=== PATIENT | female | born 1940 | race Caucasian/White ===

== ENCOUNTER 2019-01-09 07:34 | Outpatient (CLI) | payer MEDICARE ==
--- NOTE | 2019-01-09 08:47 | MRI ---
LUMBAR SPINE MRI WITHOUT IV CONTRAST: Date: 01/09/19 HISTORY: Lumbar radicular pain. Pain down right leg with low back pain. History of colon cancer. FINDINGS: Conus medullaris region is unremarkable, terminating at the upper L2. Prominent disc degenerative disease with ligament and facet hypertrophic changes, particularly thicke sabina of the posterior longitudinal ligament at the L4, L5, and S1 regions. T12-L1: No significant stenosis. L1-L2: No significant stenosis. L2-L3: Mild central canal and moderate lateral recess stenosis, and bilateral foraminal stenosis. L3-L4: Severe central canal and lateral recess stenosis, and bilateral foraminal stenosis with multi ple annular fissures. L4-L5: Very severe central spinal canal and lateral recess, and bilateral foraminal stenosis. L5-S1: Diffuse disc osteophytosis with mild central canal and lateral recess stenosis, and moderate to severe bilateral foraminal stenosis with multiple annular fissures. No significant abnormal marrow signal. IMPRESSION: Variable severity, up to severe, canal, lateral recess, and foraminal stenosis, most marked at L4-L5 followed by L3-L4. POS: [facility]
== END 2019-01-09 07:35 | disposition home or self-care (01) ==
LOC: TBSIIMAG 07:34
PROVIDERS: ATTEND Orthopaedic Surgery
DX: M54.16 Radiculopathy, lumbar region (principal); M48.061 Spinal stenosis, lumbar region without neurogenic claudication
CPT/HCPCS: 72148

== ENCOUNTER 2019-02-06 14:39 | Outpatient (CLI) | payer MEDICARE ==
[2019-02-06 16:43] LABS: Hemoglobin 12.4 g/dL (12.0-16.0); Mean Corpuscular HGB CONC 33.2 g/dL (32.0-36.0); Mean Corpuscular Hemoglobin 30.1 pg (27.0-31.0); Mean Corpuscular Volume 90.6 fL (78.0-98.0); Mean Platelet Volume 7.1 fL (7.4-10.4); Platelet Count 236 thou/uL (130-400); RBC Distribution Width 13.9 % (11.5-14.5); Red Blood Cell (RBC) Count 4.13 mill/uL (4.20-5.40); White Blood Cell (WBC) Count 4.5 thou/uL (4.8-10.8)
[2019-02-06 17:02] LABS: Anion Gap 15 mmol/L (10-20); BUN (Urea Nitrogen) 39 mg/dL (9.8-20.1); Calc. Creatinine Clearance 0 mL/min (70-130); Calcium 9.6 mg/dL (7.8-10.44); Carbon Dioxide 23 mmol/L (23-31); Chloride 105 mmol/L (98-107); Estimated GFR-MDRD 28; Glucose 166 mg/dL (83-110); Potassium 3.6 mmol/L (3.5-5.1); Sodium 139 mmol/L (136-145)
--- NOTE | 2019-02-10 15:19 | EKG ---
Test Reason : Blood Pressure : / mmHG Vent. Rate : 061 BPM Atrial Rate : 061 BPM P-R Int : 170 ms QRS Dur : 090 ms QT Int : 442 ms P-R-T Axes : 064 012 074 degrees QTc Int : 444 ms Sinus rhythm with occasional Premature ventricular complexes Cannot rule out Anterior infarct , age undetermined Abnormal ECG Confirmed by SHAHAB FLORES ([id number]) on 02/10/2019 3:18:57 PM Referred By: MICHAELLE Confirmed By:SHAHAB FLORES
== END 2019-02-06 14:40 | disposition home or self-care (01) ==
LOC: LABBT 14:39
PROVIDERS: ATTEND Neurological Surgery
DX: Z01.818 Encounter for other preprocedural examination (principal); M48.061 Spinal stenosis, lumbar region without neurogenic claudication
CPT/HCPCS: 80048; 85027; 93005; 93010

== ENCOUNTER 2019-02-10 08:05 | Observation (INO) | payer MEDICARE ==
[2019-02-06 15:30] VITALS: BMI 31.7
[2019-02-10] MEDS ORDERED: Fentanyl 100 MCG/2 ML VIAL ONE ×3 (11:49→14:31)
--- NOTE | 2019-02-10 13:26 | OP ---
DATE OF PROCEDURE: 02/10/2019 WEBBING SUPERVISOR: Risa Lopez PA-C. PROCEDURE PERFORMED: L3 to L5 laminectomy; right L4 foraminotomy and diskectomy. DESCRIPTION OF PROCEDURE: The patient was brought to the operating room and intubated. She was rolled in the prone position on gel-filled chest rolls. An incision was made exposing L3 through L5 and the level was confirmed by x-ray. We performed complete L5, complete L4, and inferior L3 laminectomy, completely decompressing the neural elements. We performed a complete right L4-L5 facetectomy and right L4 foraminotomy completely decompressing the right L4 nerve. We explored beneath this and did not find any meaningful herniated disk material. After complete decompression had been secured, the wound was extensively irrigated and MAC hemostasis was secured. Vancomycin powder was applied and the wound was closed in anatomic layers. Job ID: [id number]
[2019-02-10] MEDS ORDERED: Ondansetron HCl/PF 4 MG/2 ML Vial IVP PRN (13:50)
[2019-02-10] MEDS ORDERED: Promethazine HCl 25 MG/ML VIAL SLOW IVP PRN (13:50)
[2019-02-10] MEDS ORDERED: Promethazine HCl 25 MG/ML VIAL IM PRN (13:50)
[2019-02-10] MEDS ORDERED: diphenhydrAMINE 50 MG/ML VIAL IVP PRN (13:58)
[2019-02-10] MEDS ORDERED: Milk Of Magnesia 30 ML UDCUP PO PRN (13:58)
[2019-02-10] MEDS ORDERED: traMADol HCl 50 MG TAB PO PRN ×2 (13:58)
[2019-02-10] MEDS ORDERED: Ondansetron PF 4 MG/2 ML Vial IM PRN (13:58)
[2019-02-10] MEDS ORDERED: Promethazine 25 MG TAB PO PRN (13:58)
[2019-02-10] MEDS ORDERED: Acetaminophen/Codeine 30-300mg Tablet PO PRN (13:58)
[2019-02-10] MEDS ORDERED: Morphine 4 MG/ML VIAL SLOW IVP PRN (13:58)
[2019-02-10] MEDS ORDERED: diphenhydrAMINE 25 MG CAP PO PRN (13:58)
[2019-02-10] MEDS ORDERED: Prochlorperazine 10 MG/2 ML VIAL IM PRN (13:58)
[2019-02-10] MEDS ORDERED: Mag-Al 1200 mg/1200 mg/30 ML UDCUP PO PRN (13:58)
[2019-02-10] MEDS ORDERED: Promethazine HCl 12.5 MG SUPP PR PRN (13:58)
[2019-02-10] MEDS ORDERED: Melatonin 3 MG TAB PO PRN (14:07)
[2019-02-10] MEDS ORDERED: [UNRECOGNIZED DRUG - OTHER] SC SCH (14:15)
[2019-02-10] MEDS: CEFAZOLIN 2 GM in Premix Bag 1 BAG IVPB SCH ×2 (15:53→21:31)
[2019-02-10] MEDS ORDERED: ePHEDrine 50 MG/ML VIAL ONE (16:09)
[2019-02-10] MEDS ORDERED: Dexamethasone 20 MG/5 ML VIAL ONE (16:09)
[2019-02-10] MEDS ORDERED: Rocuronium Bromide 10 MG/ML (10ML VIAL) ONE (16:09)
[2019-02-10] MEDS ORDERED: PROPOFOL 200 MG/20 ML VIAL ONE (16:09)
[2019-02-10] MEDS ORDERED: Glycopyrrolate 0.2 MG/ML 5 ML SYRINGE ONE (16:09)
[2019-02-10] MEDS ORDERED: Lidocaine 1% PF 5 ML VIAL ONE (16:09)
[2019-02-10] MEDS ORDERED: Ondansetron PF 4 MG/2 ML Vial ONE (16:09)
[2019-02-10] MEDS: Gemfibrozil 600 MG TAB PO SCH (18:06)
[2019-02-10] MEDS: hydrALAZINE 25 MG TAB PO SCH (20:55)
[2019-02-10] MEDS ORDERED: Gabapentin 300 MG CAP PO SCH (21:00)
[2019-02-10] MEDS ORDERED: Escitalopram Oxalate 20 mg Tablet PO SCH (21:00)
[2019-02-11] MEDS: Acetaminophen/Codeine 30-300mg Tablet PO PRN ×2 (00:13→08:43)
[2019-02-11] MEDS: tiZANidine HCl 4 MG TAB PO PRN ×2 (00:15→08:39)
--- NOTE | 2019-02-11 05:55 | CON ---
DATE OF CONSULTATION: 02/10/19 REASON FOR CONSULTATION: Medical management. HISTORY OF PRESENT ILLNESS: Ms. Chen is a pleasant 78-year-old female with past medical history significant for hypertension, hyperlipidemia, rheumatoid arthritis, and persistent low back pain, who presented to the hospital electively today for L3 through L5 laminectomy with Dr. Medina. She tolerated the procedure very well. She is seen postoperatively on the floor, sitting up in bed and eating dinner. She states that she feels very well at this time. She has no pain at this time. She has no nausea or vomiting. No chest pain or shortness of breath. REVIEW OF SYSTEMS: 12-point review of systems is performed and is negative except that stated above. ALLERGIES: STATINS. HOME MEDICATIONS: 1. Amlodipine 2.5 mg one tablet p.o. q.a.m. 2. Aspirin 81 mg daily. 3. Cimzia 400 mg one pen subcu every 30 days. 4. Chlorthalidone 25 mg one tablet p.o. q.a.m. 5. Vitamin D3 supplement 4000 units p.o. daily. 6. Vitamin B12 of 5000 mcg p.o. daily. 7. Lexapro 20 mg p.o. at bedtime. 8. Repatha one pen subcu every two weeks. 9. Gabapentin 600 mg p.o. at bedtime. 10. Gemfibrozil 600 mg p.o. b.i.d. 11. Hydralazine 1 tablet p.o. b.i.d. 12. Leflunomide 10 mg p.o. daily. 13. Levothyroxine 125 mcg p.o. q.a.m. 14. Melatonin 5 mg capsule one capsule p.o. at bedtime. 15. Metoprolol succinate 100 mg p.o. daily. 16. Tavares-3 fatty acids two capsules p.o. b.i.d. 17. Prednisone 5 mg tablet one tablet p.o. q.a.m. PAST MEDICAL HISTORY: Significant for hypertension, hyperlipidemia, peripheral neuropathy, rheumatoid arthritis, and colon cancer. PAST SURGICAL HISTORY: Right total knee replacement in 2017. In 2014, she had a hemicolectomy for colon cancer. SOCIAL HISTORY: No illicit drug use. No smoking. No alcohol use. FAMILY HISTORY: Noncontributory. LABORATORY DATA: From February 06, 2019; white blood cell count 4.5, hemoglobin 12.4, hematocrit 37.4, and platelet count is 236. Potassium 3.6, sodium 139, BUN 39, creatinine 1.76, and calcium was 9.6. ASSESSMENT: 1. Status post L3 through L5 laminectomy, right L4 foraminotomy and diskectomy, performed today with Dr. Medina. 2. Rheumatoid arthritis. 3. History of colon cancer diagnosed in 2014, status post hemicolectomy and chemotherapy. 4. Hypertension. 5. Peripheral neuropathy. 6. Chronic kidney disease, stage 3, creatinine 1.76 which appears near baseline. 7. Hyperlipidemia. PLAN: We will continue the patient's home medications and antihypertensive regimen. We will hold off on her leflunomide and prednisone given recent surgery today. We will avoid all nephrotoxins in light of her chronic kidney disease. Empiric antibiotic coverage as ordered per Dr. Medina's team. Physical Therapy consult is pending. We will follow along. Thank you for the consult. Job ID: [id number] MTDD
[2019-02-11] MEDS ORDERED: Levothyroxine Sodium 125 MCG TAB PO SCH (06:00)
[2019-02-11] MEDS: Gemfibrozil 600 MG TAB PO SCH (06:36)
[2019-02-11] MEDS ORDERED: predniSONE 5 MG TAB PO SCH (08:00)
[2019-02-11] MEDS: hydrALAZINE 25 MG TAB PO SCH (08:39)
[2019-02-11] MEDS ORDERED: Amlodipine 5 MG TAB PO SCH (09:00)
[2019-02-11] MEDS ORDERED: Cyanocobalamin (Vitamin B-12) 1,000 MCG TAB PO SCH ×2 (09:00)
[2019-02-11] MEDS ORDERED: Non-Formulary Item 1 EACH (Cyanocobalamin (Vitamin B-12) [Vitamin B12] 5,000 MCG) PO SCH (09:00)
[2019-02-11] MEDS ORDERED: Chlorthalidone 25 MG TAB PO SCH (09:00)
--- NOTE | 2019-02-11 11:42 | PDOC.PN ---
- Subjective Encounter Start Date: 02/11/19 Encounter Start Time: 09:15 Subjective: is sitting in chair, no pain, sob or chest pain -: is ambulating in room -: at bedside - Objective MAR Reviewed: Yes Vital Signs & Weight: Vital Signs (12 hours) Temp Pulse Resp BP Pulse Ox 02/11/19 08:40 50 L 02/11/19 08:39 50 L 02/11/19 07:46 97.7 F 50 L 16 97/59 L 95 02/11/19 03:49 97.6 F 56 L 18 129/74 92 L 02/11/19 01:02 137/70 02/11/19 00:26 97.8 F 55 L 18 169/71 H 93 L Weight Admit Weight 6.526 oz Weight 185 lb I&O: 02/10/19 02/11/19 02/12/19 06:59 06:59 06:59 Intake Total 2140 Output Total 75 Balance 2065 Phys Exam - Physical Examination HEENT: PERRLA, moist MMs Neck: no JVD, supple Respiratory: no wheezing, no rales Cardiovascular: RRR, no significant murmur Gastrointestinal: soft, non-tender, positive bowel sounds Musculoskeletal: no edema, pulses present drain+ at surgical lumbar site Neurological: non-focal, moves all 4 limbs Psychiatric: normal affect, A&O x 3 Dx/Plan (1) S/P lumbar laminectomy Code(s): Z98.890 - OTHER SPECIFIED POSTPROCEDURAL STATES Status: Acute Comment: L3-5, right L4 foraminotomy + diskectomy 02/10/2019 (2) Dyslipidemia Code(s): E78.5 - HYPERLIPIDEMIA, UNSPECIFIED Status: Chronic (3) H/O malignant neoplasm of colon Code(s): Z85.038 - PERSONAL HISTORY OF MALIGNANT NEOPLASM OF LARGE INTESTINE Status: Chronic Comment: prior hemicolectomy, in remission (4) Hypertension Code(s): I10 - ESSENTIAL (PRIMARY) HYPERTENSION Status: Chronic Qualifiers: Hypertension type: essential hypertension Qualified Code(s): I10 - Essential (primary) hypertension (5) Hypothyroidism Code(s): E03.9 - HYPOTHYROIDISM, UNSPECIFIED Status: Chronic (6) Rheumatoid arthritis Code(s): M06.9 - RHEUMATOID ARTHRITIS, UNSPECIFIED Status: Chronic Comment: on cimzia, leflunomide, off prednisone x 2 weeks - Plan hemo/neurostable -: dc plan per nsx adv, is amb in room -: continue home dose of lopressor, hydralazine, lopid, lexapro, synthroid -: will f/u -: renal function is stable * . Review of Systems - Medications/Allergies Allergies/Adverse Reactions: Allergies Allergy/AdvReac Type Severity Reaction Status Date / Time [id number]-Jsb Reductase Allergy Verified 02/06/19 15:30 Inhibitor Medications: Current Medications Acetaminophen/Codeine Phosphate (Tylenol #3) 1 tab PO Q3H PRN PRN Reason: PAIN (1-3) Acetaminophen/Codeine Phosphate (Tylenol #3) 2 tab PO Q3H PRN PRN Reason: PAIN (4-6) Last Admin: 02/11/19 08:43 Dose: 2 tab Al Hydroxide/Mg Hydroxide (Maalox) 30 ml PO Q4H PRN PRN Reason: Heartburn or Indigestion Amlodipine Besylate (Norvasc) 2.5 mg PO DAILY [facility] Last Admin: 02/11/19 08:40 Dose: 2.5 mg Chlorthalidone (Hygroton) [facility] [place] Last Admin: 02/11/19 08:44 Dose: 25 mg Cholecalciferol (Vitamin D3) 4,000 units PO DAILY [facility] Last Admin: 02/11/19 08:39 Dose: 4,000 units Cyanocobalamin (Vitamin B-12) 5,000 mcg PO DAILY [facility] Last Admin: 02/11/19 08:38 Dose: 5,000 mcg Cyanocobalamin (Vitamin B-12) 5,000 mcg PO DAILY [facility] Last Admin: 02/11/19 08:44 Dose: Not Given Diphenhydramine HCl (Benadryl) 25 mg PO Q6H PRN PRN Reason: Itching Diphenhydramine HCl (Benadryl) 25 mg IVP Q6H PRN PRN Reason: Itching Escitalopram Oxalate (Lexapro) 20 mg PO HS [facility] Last Admin: 02/10/19 20:55 Dose: 20 mg Gabapentin (Neurontin) 600 mg PO HS [facility] Last Admin: 02/10/19 20:55 Dose: 600 mg Gemfibrozil (Lopid) 600 mg PO BID-AC [facility] Last Admin: 02/11/19 06:36 Dose: 600 mg Hydralazine HCl (Apresoline) 100 mg PO BID [facility] Last Admin: 02/11/19 08:39 Dose: 100 mg Levothyroxine Sodium (Synthroid) 125 mcg PO 0600 [facility] Last Admin: 02/11/19 05:52 Dose: 125 mcg Magnesium Hydroxide (Milk Of Magnesium) 30 ml PO Q12H PRN PRN Reason: Constipation Melatonin (Melatonin) 5 mg PO HS PRN PRN Reason: Insomnia Morphine Sulfate (Morphine) 2 mg SLOW IVP Q1H PRN PRN Reason: Moderate Breakthrough Pain Morphine Sulfate (Morphine) 4 mg SLOW IVP Q1H PRN PRN Reason: SEVERE BREAKTHROUGH PAIN Last Admin: 02/10/19 18:06 Dose: 4 mg Ondansetron HCl (Zofran) 4 mg IM Q24H PRN PRN Reason: Nausea/Vomiting Patient's Home Medication Repatha Sureclick 1 each SC ASDIR [facility] Prochlorperazine Edisylate (Compazine) 10 mg IM Q6H PRN PRN Reason: Nausea Promethazine HCl (Phenergan) 12.5 mg PO Q4H PRN PRN Reason: Nausea/Vomiting Promethazine HCl (Phenergan Suppository) 12.5 mg MS Q4H PRN PRN Reason: Nausea/Vomiting Sodium Chloride (Flush - Normal Saline) 10 ml IVF PRN PRN PRN Reason: Saline Flush Tizanidine HCl (Zanaflex) 4 mg PO Q6H PRN PRN Reason: MUSCLE SPASM Last Admin: 02/11/19 08:39 Dose: 4 mg Tramadol HCl (Ultram) 50 mg PO Q6H PRN PRN Reason: PAIN (1-3) Tramadol HCl (Ultram) 100 mg PO Q6H PRN PRN Reason: PAIN (4-6)
[2019-02-11 11:47] VITALS: BP 98/66; TEMP 98
--- NOTE | 2019-02-11 15:18 | DIS ---
DATE OF ADMISSION: 02/10/2019 DATE OF DISCHARGE: 02/11/2019 The patient is a 78-year-old female, status post L3 to L5 laminectomy and L4-L5 diskectomy for lumbar stenosis. Following the surgery, she was transitioned to the Med/Surg floor, where her pain has been well-controlled with p.o. medications. She is tolerating a regular diet, and she is voiding appropriately. She has been up and down, ambulating without difficulty, back and forth to the bathroom. She has had no incisional issues. On exam this morning, she is awake and alert, in no acute distress. She has free active range of motion in all extremities. No focal motor weakness. No reflex asymmetry. She has a small amount of shadowing on the dressing, but this is noted immediately postop in progress. The patient appears to be doing well postoperatively. Her ANTIONE drain will be removed this morning, only 75 mL out overnight and we will plan to dismiss the patient to home. I have discussed home care and precautions. We will follow up with the patient in 2 weeks. Job ID: [id number]
[2019-02-11] MEDS ORDERED: Escitalopram Oxalate 20 mg Tablet PO SCH (21:00)
== END 2019-02-11 13:17 | disposition home or self-care (01) ==
LOC: SDC 08:05 → SURG B 15:07
PROVIDERS: ADMIT Neurological Surgery; ATTEND Neurological Surgery
PROC: 01NB0ZZ Release Lumbar Nerve, Open Approach (ICD-10-PCS; principal; 2019-02-10)
DX: M48.062 Spinal stenosis, lumbar region with neurogenic claudication (principal); I48.91 Unspecified atrial fibrillation; E03.9 Hypothyroidism, unspecified; M06.9 Rheumatoid arthritis, unspecified; G62.9 Polyneuropathy, unspecified; I12.9 Hypertensive chronic kidney disease with stage 1 through stage 4 chronic kidney disease, or unspecified chronic kidney disease; N18.3 Chronic kidney disease, stage 3 (moderate); E78.2 Mixed hyperlipidemia; Z85.038 Personal history of other malignant neoplasm of large intestine; Z79.52 Long term (current) use of systemic steroids; Z79.82 Long term (current) use of aspirin; Z79.899 Other long term (current) drug therapy; Z88.8 Allergy status to other drugs, medicaments and biological substances; Z90.49 Acquired absence of other specified parts of digestive tract; Z96.651 Presence of right artificial knee joint; Z98.890 Other specified postprocedural states
CPT/HCPCS: 63047; 63048; 76000; 96365; 96375; 97139; 97530; G0378; J0690; J1100; J2001; J2270; J2405; J2704; J3010; J3370; J3490; J7512

== ENCOUNTER 2019-06-24 14:51 | Outpatient (CLI) | payer MEDICARE ==
[~2019-06-24 14:51] MED LIST: Magnevist 469MG/ML 20 ML VIAL ONE
--- NOTE | 2019-06-24 19:34 | MRI ---
MRI LUMBAR SPINE WITH AND WITHOUT IV CONTRAST: 06/24/19 HISTORY: Patient with history of prior low back surgery in January 2019. Patient is still having back pain and ne uropathy in bilateral feet. Patient is currently on chemotherapy secondary to colon cancer. COMPARISON: MRI lumbar spine on 01/09/2019. FINDINGS: The retroperitoneal structures demonstrate a normal MRI appearance. The conus medullaris is similar in appearance and again terminates at the L1-2 level. There is generalized heterogeneity of the bone marrow likely due to conversion to red marrow. Multile yin degenerative changes are seen in the lumbar spine. There has been interval postsurgical changes r elated to laminectomy defects at the L3-4 and L4-5 levels. There is enhancement seen posterior to the thecal sac at level of laminectomy changes likely related to scarring. There is mass effect on the t hecal sac posteriorly at the L4-5 level due to prominent scarring posteriorly. There is no fluid pema ection seen to suggest an abscess. No epidural collection is identified. L1-2 level: There is no significant central canal or neural foraminal narrowing. L2-3 level: Again noted is a mild broad based disc osteophyte complex and facet hypertrophic changes. Mild generalized narrowing of the central spinal canal is again seen with mild bilateral neural for aminal narrowing. L3-4 level: There is loss of intervertebral disc height. There is a broad based disc osteophyte compl ex again present at this level. This does result in mild to moderate narrowing of the central spinal canal at the level of the disc space, but this has improved when compared to the prior exam. There is prominence of epidural fat on the prior exam which is not appreciated on today's study. There is mil d bilateral neural foraminal narrowing again present greater on the right. There is loss of intervert ebral disc height at this level. Facet degenerative changes are noted. L4-5 level: There are prominent end plate degenerative changes similar to the prior exam with loss o f intervertebral disc height. Broad based disc osteophyte complex is again seen. There is moderate na rrowing of the central spinal canal at this level, but the degree of central canal narrowing has impr karuna when compared to the prior study where there was no severe narrowing of the central spinal canal . Severe bilateral neural foraminal narrowing is again noted. Degree of narrowing is greater on the r ight. L5-S1 level: Again, there is loss of intervertebral disc height with end plate degenerative changes. There is a broad based disc osteophyte complex present. This encroaches on the exiting bilateral S1 n erve roots. There is mild generalized narrowing of the central spinal canal. Prominent facet hypertro phic changes are noted. There is persistent moderate to severe bilateral neural foraminal narrowing g reater on the left. IMPRESSION: 1. Interval postsurgical changes of the lumbar spine with laminectomy defects involving the L4 a nd L5 vertebral bodies. There is enhancing soft tissue seen posterior to the level of laminectomy def ects, most suggestive of postsurgical scarring. There is no evidence of a fluid collection seen to amanda ggest an abscess. No epidural collection is identified. The enhancing soft tissue/scar tissue does re sult in mild mass effect on the posterior aspect of the thecal sac at the level of the L5 vertebral b carlos. 2. Prominent disc degenerative changes again present in the lower lumbar spine. Degrees of centr al canal narrowing have improved secondary to recent laminectomy defects, but there is moderate narro wing of the central spinal canal at the L4-5 level, persistent mild to moderate central canal narrowi ng at the L3-4 level, and moderate narrowing of the central spinal canal at the L4-5 level. 3. Persistent severe bilateral neural foraminal narrowing at the L4-5 level with moderate to sev ere bilateral neural foraminal narrowing at L5-S1 level greater on the left. POS: [facility]K
== END 2019-06-24 14:52 | disposition home or self-care (01) ==
LOC: BICMRI 14:51
PROVIDERS: ATTEND Neurological Surgery
DX: M51.16 Intervertebral disc disorders with radiculopathy, lumbar region (principal); M48.061 Spinal stenosis, lumbar region without neurogenic claudication; M48.07 Spinal stenosis, lumbosacral region; Z98.890 Other specified postprocedural states
CPT/HCPCS: 72158; 82565; A9579

== ENCOUNTER 2019-10-08 14:06 | Inpatient (IN) | payer MEDICARE ==
[2019-10-08 14:54] LABS: Hemoglobin 12.8 g/dL (12.0-16.0); Mean Corpuscular HGB CONC 35.2 g/dL (32.0-36.0); Mean Corpuscular Hemoglobin 30.9 pg (27.0-31.0); Mean Corpuscular Volume 87.9 fL (78.0-98.0); Mean Platelet Volume 7.5 fL (7.4-10.4); Platelet Count 217 thou/uL (130-400); RBC Distribution Width 13.2 % (11.5-14.5); Red Blood Cell (RBC) Count 4.15 mill/uL (4.20-5.40); White Blood Cell (WBC) Count 5.3 thou/uL (4.8-10.8)
[2019-10-08 15:07] LABS: Band 6 % (5-11); Eosinophils 6 % (0-10); Lymphocytes 26 % (21-51); MDiff Complete? YES; Monocytes 11 % (0-10); Neutrophil 51 % (42-75); Platelet Morphology Comment Appears Adequate; RBC Morphology Normal
--- NOTE | 2019-10-08 15:17 | RAD ---
PORTABLE CHEST 1 VIEW: Date: 10/08/2019 Time: 1537 hours HISTORY: Syncope, atrial fibrillation. FINDINGS: Comparison made with exam of 01/18/2015. The heart size is normal. The aorta is tortuous. There is continued elevation of the right hemidiaphr agm. Calcified granuloma in the left lung is again seen. No focal areas of consolidation, pneumothora shawnee, or pleural effusions are identified. IMPRESSION: No acute process. POS: [facility]
[2019-10-08 15:26] LABS: ALT (SGPT) 22 U/L (8-55); AST (SGOT) 15 U/L (5-34); Albumin 4.2 g/dL (3.4-4.8); Alkaline Phosphatase 74 U/L (40-110); Anion Gap 14 mmol/L (10-20); BUN (Urea Nitrogen) 29 mg/dL (9.8-20.1); Bilirubin, Total 0.5 mg/dL (0.2-1.2); Calc. Creatinine Clearance 0 mL/min (70-130); Calcium 9.2 mg/dL (7.8-10.44); Carbon Dioxide 26 mmol/L (23-31); Chloride 102 mmol/L (98-107); Estimated GFR-MDRD 36; Globulin 2.3 g/dL (2.4-3.5); Glucose 136 mg/dL (83-110); Potassium 3.6 mmol/L (3.5-5.1); Protein, Total 6.5 g/dL (6.0-8.3); Sodium 138 mmol/L (136-145)
[2019-10-08 15:42] LABS: CKMB 6.5 ng/mL (0-6.6)
[2019-10-08] MEDS ORDERED: Aspirin Chewable 81 MG TAB ONE (17:14)
[2019-10-08] MEDS ORDERED: Midazolam HCl 2 mg/2 ml Vial ONE (17:47)
[2019-10-08 20:13] VITALS: BMI 29.8
[2019-10-08] MEDS ORDERED: Guaifenesin DM 100-10/5 ML UDCUP PO PRN (20:13)
[2019-10-08] MEDS ORDERED: Ondansetron PF 4 MG/2 ML Vial IVP PRN (20:13)
[2019-10-08] MEDS ORDERED: Acetaminophen 650 MG Suppository PR PRN (20:13)
[2019-10-08] MEDS ORDERED: Senokot S 8.6-50 MG TAB PO PRN (20:13)
[2019-10-08] MEDS ORDERED: Ondansetron ODT 4 MG TAB PO PRN (20:13)
[2019-10-08] MEDS: Escitalopram Oxalate 20 mg Tablet PO SCH (21:23)
[2019-10-08] MEDS: Gabapentin 300 MG CAP PO SCH (21:23)
[2019-10-08] MEDS: hydrALAZINE 25 MG TAB PO SCH (21:23)
--- NOTE | 2019-10-08 21:35 | HP ---
PRIMARY CARE PHYSICIAN: Yogi Rose DO CHIEF COMPLAINT: Fluttering and zoning out spells. HISTORY OF PRESENT ILLNESS: This is a 78-year-old white female with a history of previous atrial flutter, followed by Dr. Tobias. She was in her normal state of health until the 24 of September when she had an episode of fluttering in her chest and felt like she had zoned out a little bit. This started occurring again about 3 days ago. She has had several episodes at home. She also had a fall in the bathroom on Sunday night that she thought was because she tripped on the rug, but now she is starting to think that maybe she had one of these episodes during and that made her fall. She did skin her elbow at that time, but no other injuries. These were getting more frequent, so she went into the emergency room. In the ER, she was found to be in atrial flutter with some pauses lasting up to 5 seconds. She could feel these occasionally in her chest, but was otherwise asymptomatic from them. The ER doctor did call Dr. Tobias and then contacted Dr. Lange, supervisor coating. He stated that as long as the patient's vital signs were stable and the pauses were not longer than 10 seconds, then no transcutaneous pacing or external pacing was necessary at this time. He did recommend that they admit her to the IMCU, watch her overnight and that he will put a pacemaker in in the morning. REVIEW OF SYSTEMS: CONSTITUTIONAL: No fevers. No chills. EYES: No double vision or blurred vision. ENT: No congestion, drainage, or sore throat. CARDIOVASCULAR: See HPI. No chest pain. PULMONARY: No coughing, wheezing, or shortness of breath. GASTROINTESTINAL: No abdominal pain. No nausea or vomiting. No diarrhea or constipation. GENITOURINARY: No dysuria or hematuria. MUSCULOSKELETAL: She has some chronic rheumatoid arthritis and joint aches, however, this is at baseline. SKIN: No rashes or other lesions that she has noted NEUROLOGIC: She has chronic tingling in her bilateral hands and bilateral feet from peripheral neuropathy from one of her chemotherapy agents years ago. PAST MEDICAL HISTORY: 1. Atrial fibrillation/atrial flutter. 2. Rheumatoid arthritis. 3. Hypertension. 4. Hyperlipidemia. 5. Mild coronary artery disease without any significant blockages. 6. Urinary incontinence. 7. Hypothyroidism. 8. Previous colon cancer stage III, status post surgery, radiation, and chemotherapy. 9. Chronic renal disease, stage III. PAST SURGICAL HISTORY: 1. Appendectomy. 2. Hysterectomy. 3. Right total knee replacement. 4. Foot surgery. 5. Right-sided colectomy. 6. Cardiac catheterization in 2008. 7. Lumbar laminectomy. SOCIAL HISTORY: The patient denies tobacco, alcohol, or illicit drug use. She is , lives with her ; he is present in the room with her. The patient is a full code. Should she be incapacitated, her will be her medical decision maker; his name is Christoph Chen. Her daughter would also help with decision making; her name is Anabela and phone number is [phone]. FAMILY HISTORY: Father had peripheral vascular disease and amputation of one of his extremities. He also had heart trouble. Mom had Alzheimer's, heart disease, and macular degeneration. ALLERGIES: STATINS CAUSE SEVERE LEG CRAMPS. CURRENT MEDICATIONS: 1. Hydralazine 100 mg twice a day. 2. Gabapentin 600 mg at night. 3. Metoprolol extended release 100 mg daily. 4. Leflunomide 10 mg IV infusion once a day. 5. Levothyroxine 125 mcg daily. 6. Amlodipine 2.5 mg daily. 7. Lexapro 20 mg daily. 8. Aspirin 81 mg daily. 9. Repatha SureClick, dose unknown. PHYSICAL EXAMINATION: VITAL SIGNS: Blood pressure 137/98, pulse 89, respirations 18, temperature 97.5, and O2 saturation 95% on room air. GENERAL: This is a well-developed, well-nourished white female, in no acute distress. HEENT: Pupils are equal, round, and reactive to light. Oropharynx clear without lesions, erythema, or exudate. NECK: Supple. No lymphadenopathy. No thyroid nodules or enlargement. HEART: Irregularly irregular rhythm without murmurs, rubs, or gallops. LUNGS: Clear to auscultation bilaterally. No wheezes, crackles, or rhonchi. Normal respiratory effort. ABDOMEN: Soft, nontender to palpation. Normoactive bowel sounds. No hepatosplenomegaly or other masses. EXTREMITIES: No clubbing, cyanosis, or edema. SKIN: No rashes or other lesions noted. NEUROLOGIC: The patient has intact strength and sensation in all extremities. No facial droop. PSYCHIATRIC: Alert and oriented x3. Normal mood and affect. LABORATORY DATA: CBC within normal limits. Complete metabolic panel is notable for a BUN of 29, a creatinine of 1.4 which is actually chronic for her, and glucose of 136. The rest of the complete metabolic panel is normal. Magnesium is 2.0. Troponin is 0.030 and CK-MB was normal. Chest x-ray; I did review the chest x-ray along with the radiologist's report. It shows normal heart size. There was a tortuous aorta. There was some continued elevation in the right hemidiaphragm. No acute processes noted. No infiltrates or pleural effusions. EKG and telemetry monitoring shows atrial flutter waves with irregular block, typically running in the 70s or occasionally dropping down some with intermittent pauses, longest pause appeared in the IVC was 5 seconds. ASSESSMENT: 1. Atrial fibrillation/atrial flutter with variable block and some prolonged pauses. Dr. Lange and Dr. Tobias have been notified by the emergency room and Dr. Lange is planning on putting a pacemaker in in the morning. Pacer pads are present on the patient's chest and the patient is being observed closely in the IMCU. Should she start having pauses greater than 10 seconds, then Cardiology and Electrophysiology will be notified and transcutaneous pacing can be done or if she were to have a drop in her blood pressure and otherwise significantly symptomatic. A sheath was inserted in the right internal jugular vein by the ER physician as well in case they need to do any transvenous pacing. 2. Hypertension. Resume patient's hydralazine, but we will hold AV qing blocking agents for now. 3. Peripheral neuropathy. We will continue the patient's home medications. 4. Hyperlipidemia. 5. Deep venous thrombosis prophylaxis. We will just put SCDs on right now in anticipation of surgery in the morning. 6. Gastrointestinal prophylaxis. Put the patient on Pepcid twice a day. CODE STATUS: Patient is a full code. Should she be incapacitated, her medical decision maker will be her . Job ID: [id number]
[2019-10-08] MEDS ORDERED: Leflunomide 10 mg Tablet PO SCH (22:30)
[2019-10-09] MEDS ORDERED: DOBUTamine 500 mg/250 ml 500 MG in Premix Bag 1 BAG IVPB SCH (01:00)
[2019-10-09 04:15] LABS: Anion Gap 13 mmol/L (10-20); BUN (Urea Nitrogen) 25 mg/dL (9.8-20.1); Calc. Creatinine Clearance 50 mL/min (70-130); Calcium 9.2 mg/dL (7.8-10.44); Carbon Dioxide 24 mmol/L (23-31); Chloride 105 mmol/L (98-107); Estimated GFR-MDRD 43; Glucose 93 mg/dL (83-110); Sodium 139 mmol/L (136-145)
[2019-10-09 04:22] LABS: Band 6 % (5-11); Eosinophils 2 % (0-10); Hemoglobin 12.7 g/dL (12.0-16.0); Lymphocytes 18 % (21-51); MDiff Complete? YES; Mean Corpuscular HGB CONC 34.7 g/dL (32.0-36.0); Mean Corpuscular Hemoglobin 30.3 pg (27.0-31.0); Mean Corpuscular Volume 87.5 fL (78.0-98.0); Mean Platelet Volume 7.5 fL (7.4-10.4); Monocytes 10 % (0-10); Neutrophil 64 % (42-75); Platelet Count 202 thou/uL (130-400); Platelet Morphology Comment Appears Adequate; RBC Distribution Width 13.3 % (11.5-14.5); Red Blood Cell (RBC) Count 4.19 mill/uL (4.20-5.40); White Blood Cell (WBC) Count 5.3 thou/uL (4.8-10.8)
[2019-10-09] MEDS: Levothyroxine Sodium 125 MCG TAB PO SCH (05:33)
[2019-10-09] MEDS ORDERED: Potassium Chloride 20 MEQ TAB PO SCH (08:30)
--- NOTE | 2019-10-09 08:58 | PDOC.HOSPP ---
- Subjective Encounter Date: 10/09/19 Encounter Time: 10:40 Subjective: Patient feeling well this AM. Some palpitation O/N and transferred to ICU due to frequent pauses. Going for pacemaker right now. - Objective Vital Signs & Weight: Vital Signs (12 hours) Temp Pulse Resp BP BP Pulse Ox 10/09/19 08:00 97.7 F 96 10/09/19 03:00 98.2 F 10/09/19 01:46 97.9 F 96 10/08/19 23:09 97.0 F L 10/08/19 21:23 89 112/84 10/08/19 21:00 97.7 F 85 18 112/84 100 Weight Weight 179 lb 6.4 oz Most Recent Monitor Data Heart Rate from ECG 108 NIBP 123/86 NIBP BP-Mean 98 Respiration from ECG 20 SpO2 96 I&O: 10/08/19 10/09/19 10/10/19 06:59 06:59 06:59 Intake Total 28 Output Total 150 Balance -122 Result Diagrams: 10/09/19 03:06 10/09/19 03:06 Hospitalist ROS - Review of Systems Constitutional: denies: fever, chills Respiratory: denies: cough, dry, shortness of breath Cardiovascular: reports: palpitations. denies: chest pain, orthopnea Gastrointestinal: denies: nausea, vomiting, abdominal pain - Medication Medications: Active Medications Generic Name Dose Route Start Last Admin Trade Name Freq PRN Reason Stop Dose Admin Escitalopram Oxalate 20 mg 10/08/19 21:00 10/08/19 21:23 Lexapro PO 20 mg HS DARRIAN Administration Gabapentin 600 mg 10/08/19 21:00 10/08/19 21:23 Neurontin PO 600 mg HS DARRIAN Administration Hydralazine HCl 100 mg 10/08/19 21:00 10/08/19 21:23 Apresoline PO 100 mg BID DARRIAN Administration Dobutamine HCl/Dextrose 500 mg 250 mls @ 12.2 mls/hr 10/09/19 01:00 10/09/19 00:59 / Device IVPB 250 mls INF DARRIAN Administration Protocol 5 MCG/KG/MIN Levothyroxine Sodium 125 mcg 10/09/19 06:00 10/09/19 05:33 Synthroid PO Not Given 0600 DARRIAN - Exam General Appearance: NAD, awake alert ENT: moist mucosa Heart: no murmur, no gallops, no rubs, normal peripheral pulses, irregular Respiratory: CTAB, no wheezes, no rales, no ronchi Gastrointestinal: soft, non-tender, non-distended, normal bowel sounds Psychiatric: normal affect, normal behavior, A&O x 3 Hosp A/P (1) Atrial fibrillation and flutter Code(s): I48.91 - UNSPECIFIED ATRIAL FIBRILLATION; I48.92 - UNSPECIFIED ATRIAL FLUTTER Status: Acute (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 - SICK SINUS SYNDROME Status: Acute (3) Sinus pause Code(s): I45.5 - OTHER SPECIFIED HEART BLOCK Status: Acute (4) CKD (chronic kidney disease) stage 3, GFR 30-59 ml/min Code(s): N18.3 - CHRONIC KIDNEY DISEASE, STAGE 3 (MODERATE) Status: Chronic (5) Dyslipidemia Code(s): E78.5 - HYPERLIPIDEMIA, UNSPECIFIED Status: Chronic (6) Hypertension Code(s): I10 - ESSENTIAL (PRIMARY) HYPERTENSION Status: Chronic Qualifiers: Hypertension type: essential hypertension Qualified Code(s): I10 - Essential (primary) hypertension (7) Hypothyroidism Code(s): E03.9 - HYPOTHYROIDISM, UNSPECIFIED Status: Chronic (8) Rheumatoid arthritis Code(s): M06.9 - RHEUMATOID ARTHRITIS, UNSPECIFIED Status: Chronic - Plan Patient with frequent pauses, alternating with tachycardic flutter overnight. Tachy/preston syndrome. Transferred to ICU. Going for pacemaker now.
[2019-10-09] MEDS ORDERED: FLU VACC TS2019-20(65YR UP)/PF 180 MCG/0.5 ML SYRINGE IM ONE (09:00)
[2019-10-09] MEDS: hydrALAZINE 25 MG TAB PO SCH ×2 (09:00→20:58)
[2019-10-09] MEDS ORDERED: Iopamidol 370 76% 50 ML VIAL FS ONE (09:40)
[2019-10-09] MEDS: Famotidine 20 MG TAB PO SCH (09:46)
--- NOTE | 2019-10-09 10:04 | CON ---
DATE OF CONSULTATION: HISTORY OF PRESENT ILLNESS: Shabana Chen is a 78-year-old white female, admitted with atrial flutter and pauses when she converts. I initially evaluated her in 05/2009. EKG revealed possible inferior and anterior myocardial infarction with nonspecific T-wave changes. Echo revealed ejection fraction of 60% to 65%. Apparently, the EKG changes were new from before. She underwent adenosine Cardiolite testing, which revealed distal lateral wall and apical fixed defect with some evidence of ischemia. She underwent cardiac catheterization and had mild inferior hypokinesis with ejection fraction of 50% to 55%. There was a long 50% mid-LAD lesion, but otherwise unremarkable coronary arteries. She has been treated medically since that time. In 2014, she was found to be anemic and ultimately found to have colon cancer. She underwent Cardiolite testing in 11/2014, which revealed no evidence of ischemia. She underwent laparoscopic right colectomy and ileal distal transverse anastomosis. She did have atrial fibrillation with fast ventricular response and she converted to sinus rhythm on intravenous Cardizem. Her TSH was 0.0215 and free T4 was elevated at 1.63, and it was felt that hyperthyroidism may have been playing a role. She had the atrial fibrillation prior to undergoing colectomy. Her last myocardial perfusion scan was in the office in 12/2016, and she had no evidence of ischemia. Last echo was in 04/2017, she had ejection fraction of 55% to 60% with evidence for diastolic dysfunction, mild mitral and tricuspid regurgitation. She is continued to be followed in the office and has never been documented to have atrial fibrillation since she was hyperthyroid prior to colon surgery. She has had ventricular bigeminy at times on her EKG at times. However, she did have normal LV function on echo and normal Cardiolite. There has been difficulty controlling her hypercholesterolemia with muscle aches with statins and she has been placed on Repatha with last LDL of 39. She did have triglyceride of 466 and Vascepa was recently started. She then noted an episode on 09/24 where she had shaking of her arms and legs for less than a minute, but denied any palpitations. Then, 3 days ago, she fell, and retrospect thinks she may have almost passed out when she fell. She has since had episodes of where she felt as if she was zoning out. These episodes continued. She went to the emergency room. She was found to be in atrial flutter. With converted, she would have pauses of 5 to 6 seconds. She was asymptomatic with the atrial flutter and denied any palpitations at that time, and only symptoms were referable to the pauses. She denies any chest discomfort or shortness of breath. PAST MEDICAL HISTORY: 1. Hypertension. 2. Hypercholesterolemia, intolerant to statins. 3. Coronary artery disease, 50% mid LAD. 4. Atrial fibrillation once when she was hyperthyroid in 2014. 5. GERD. 6. Hypothyroidism. 7. Renal insufficiency. 8. Herniated lumbar disk with leg pain. MEDICATIONS: 1. Amlodipine 2.5 mg daily. 2. Vascepa 2000 mg b.i.d. 3. Levothyroxine 137 mcg daily. 4. Aspirin 81 daily. 5. Repatha 140 mg every 2 weeks. 6. Lexapro 20 mg nightly. 7. Gabapentin 600 mg nightly. 8. Hydralazine 100 mg b.i.d. 9. Leflunomide 10 mg nightly. 10. Melatonin 3 capsules nightly. 11. Metoprolol 100 XL daily. 12. Multivitamin daily. ALLERGIES: MUSCLE ACHES WITH STATINS AND ALSO MUSCLE PAIN WITH ZETIA. PAST SURGICAL HISTORY: 1. Left foot surgery. 2. Hysterectomy. 3. Colectomy for colon cancer. 4. She also has undergone radiofrequency ablation of the left great saphenous and right great saphenous veins. SOCIAL HISTORY: She does not smoke or drink. She worked in a bank in the past. FAMILY HISTORY: Mother had coronary artery disease with stents placed. Father had peripheral vascular disease and leg revascularization. REVIEW OF SYSTEMS: A 10-point review of systems is otherwise unremarkable. PHYSICAL EXAMINATION: VITAL SIGNS: Blood pressure 148/79, pulse of 101 and atrial flutter at the present time. HEENT: PERRL. NECK: Supple. CHEST: Clear. CARDIAC: S1 and S2 are normal without any S3, S4, or murmurs. Carotid upstrokes are normal without bruits. ABDOMEN: Normal bowel sounds without tenderness or organomegaly. EXTREMITIES: No clubbing or cyanosis. There is trace pretibial edema. NEUROLOGIC: Grossly intact. SKIN: Warm and dry. LABORATORY DATA: EKG revealed atrial flutter with variable block, poor R-wave progression, possible inferior infarction. Hemoglobin 12.7, hematocrit 36.7, and white count 5300. Sodium 139, potassium 3.0, chloride 105, carbon dioxide 24, BUN 25, and creatinine 1.22. Troponin-I of 0.030. IMPRESSION: 1. The patient was transferred to the CCU last night and placed on dobutamine due to her pauses of up to 6 seconds. At the present time, that is off and it appears that she is in atrial flutter. Rate is 121 per minute. The atrial flutter is a new rhythm, having not been seen for. 2. History of atrial fibrillation in 2014, which converted with intravenous Cardizem. This occurred prior to colon surgery. It was felt to probably be related to hyperthyroidism at that time. 3. One-vessel coronary artery disease, 50% mid left anterior descending on a catheterization in 2008. 4. Hypertension. 5. Hypercholesterolemia, currently under good control with Repatha. 6. Hypertriglyceridemia, Vascepa started last time seen in the office. 7. Hypothyroidism. 8. Chronic kidney disease. 9. Gastroesophageal reflux disease. 10. Normal left ventricular function on last echo. 11. Venous insufficiency status post ablation of left great saphenous vein and right great saphenous vein. 12. History of colon cancer. PLAN: Electrophysiology has been consulted. Dr. Lange probably will place a pacemaker today. Consideration needs to be given to atrial flutter ablation as well. Echocardiogram will be performed to reassess left ventricular function. Job ID: [id number] MTDD
[2019-10-09] MEDS ORDERED: Vancomycin 1.5 GRAM/300 ML BAG 1.5 GM in Premix Bag 1 BAG IVPB SCH (10:30)
[2019-10-09] MEDS ORDERED: Lidocaine 1% (PF) 30 ML VIAL ONE (10:49)
[2019-10-09] MEDS ORDERED: CEFAZOLIN 1 GM VIAL ONE (10:54)
[2019-10-09] MEDS ORDERED: Gentamicin 80 MG/2 ML VIAL ONE (10:54)
[2019-10-09] MEDS ORDERED: Fentanyl 100 MCG/2 ML VIAL ONE (12:10)
[2019-10-09] MEDS ORDERED: Midazolam HCl 2 mg/2 ml Vial ONE ×2 (12:10→12:24)
[2019-10-09] MEDS ORDERED: HYDROcodone/Acetaminophen 5/325 mg Tablet PO PRN ×2 (14:00)
--- NOTE | 2019-10-09 15:11 | RAD ---
RADIOGRAPH CHEST 1 VIEW: DATE: 10/09/2019 HISTORY: Status post pacemaker insertion in 78-year-old female FINDINGS: The thoracic aorta is tortuous and ectatic. There is no evidence of airspace density, cardiomegaly, p ulmonary edema, or pneumothorax. The lateral costophrenic angles are not effaced. There is a new left subclavian dual lead pacemaker with lead tips projecting over the expected locations of right at rial appendage and right ventricle, since the prior study of 10/08/2019. IMPRESSION: 1) No acute cardiopulmonary findings. 2) ectasia of thoracic aorta. 3) placement of pacemaker without pneumothorax.
[2019-10-09] MEDS ORDERED: Potassium Chloride 40 MEQ in Sodium Chloride 0.9% 250 ML 250 ML IVPB SCH (15:15)
[2019-10-09] MEDS: Amiodarone 450 MG, Admixture Fee 1 EACH in Dextrose 5% in Water 250 ML IVPB SCH ×2 (15:44→22:49)
--- NOTE | 2019-10-09 16:24 | CON ---
DATE OF CONSULTATION: 10/09/2019 REFERRING MUSIC VIDEO DIRECTOR: Jasbir Tobias MD REASON FOR CONSULTATION: Atrial flutter, atrial fibrillation, bradycardia. HISTORY OF PRESENT ILLNESS: Ms. Chen is a pleasant 78-year-old white female with a history of coronary artery disease, with cardiac catheterization by Dr. Tobias in 2016 showing a 50% LAD lesion. No intervention was performed. In addition, she has a history of colon cancer with surgery and chemotherapy. She presented yesterday to the emergency department with palpitations, dizziness, and lightheadedness. Her symptoms were moderate in severity with no exacerbating or alleviating factors. Symptoms occurred for a couple of days prior to admission. She had no chest discomfort or syncope. She was noted to be in typical atrial flutter in the emergency department with pauses up to 5 seconds that were symptomatic. Overnight, she had paroxysmal atrial fibrillation and atrial flutter with sinus rhythm and sinus pauses when she would spontaneously convert to sinus rhythm. Again, her pauses were 5 seconds or more and she was symptomatic. CARDIAC PROCEDURES: On 10/09/2019, echocardiogram: Normal left upper systolic function with no significant valvular disease. In May 2009, catheterization by Dr. Tobias showed a long 50% middle LAD lesion with no other lesions. PAST MEDICAL HISTORY: 1. Coronary artery disease. 2. Hypertension. 3. Mixed hyperlipidemia, intolerant of statins. 4. Paroxysmal atrial fibrillation, which was over replaced on her thyroid replacement medicine in 2014. 5. GERD. 6. Hypothyroidism. 7. Chronic kidney disease. 8. Lumbar disk herniation with leg pain. PAST SURGICAL HISTORY: 1. Left foot surgery. 2. Hysterectomy. 3. Colectomy for colon cancer. 4. Radiofrequency ablation of the left and right great saphenous veins. ALLERGIES: MYALGIAS WITH STATINS AND ZETIA. OUTPATIENT MEDICATIONS: 1. Amlodipine 2.5 mg daily. 2. Vascepa 2000 mg b.i.d. 3. Levothyroxine 137 mcg daily. 4. Aspirin 81 mg daily. 5. Repatha 140 mg every 2 weeks. 6. Lexapro 20 mg q.p.m. 7. Gabapentin 600 mg q.p.m. 8. Hydralazine 100 mg b.i.d. 9. Leflunomide 10 mg q.p.m. 10. Melatonin three capsules q.p.m. 11. Metoprolol XL 100 mg daily. 12. Multivitamin daily. FAMILY HISTORY: Positive for coronary artery disease in her mother. Positive for peripheral vascular disease in her father. SOCIAL HISTORY: . Her is with her today as well as 2 daughters. No tobacco or alcohol. Retired from working in a bank. REVIEW OF SYSTEMS: No orthopnea or edema. No fever or chills. No melena, bright red blood per rectum, or hematemesis. No seizures, syncope, or stroke. PHYSICAL EXAMINATION: GENERAL: Alert and oriented x4, in no apparent distress. VITAL SIGNS: Blood pressure 148/79, pulse 100, and respiratory rate 12. HEENT: No lesions. Sclerae are clear. NECK: No jugular venous distention. CARDIOVASCULAR: Irregularly irregular rhythm. No murmurs, gallops, or rubs. LUNGS: Clear to auscultation bilaterally. Normal respiratory effort. ABDOMEN: Nontender, nondistended. No organomegaly. EXTREMITIES: No cyanosis, clubbing, or edema. SKIN: No lesions. LABORATORY DATA: Reviewed. Potassium 3.0, which has been replaced. IMAGING DATA: EKG atrial flutter with variable block. IMPRESSION: 1. Typical atrial flutter, spontaneously converted to sinus rhythm. 2. Paroxysmal atrial fibrillation. 3. Sick sinus syndrome with symptomatic bradycardia including 5-second pauses. 4. Coronary artery disease. No evidence of ischemia. PLAN: 1. We discussed the risks, benefits, and alternatives of permanent pacemaker implantation including, but not limited to, myocardial infarction, stroke, , vascular damage, pneumothorax, need for chest tube placement, infection, need for device removal, allergic reaction. She is agreeable to proceed. 2. Start intravenous amiodarone overnight after her pacemaker insertion, transitioned to oral amiodarone. 3. Hold off on anticoagulation for now as she will have a recent surgery. Job ID: [id number]
[2019-10-09] MEDS: Gabapentin 300 MG CAP PO SCH (20:56)
[2019-10-09] MEDS: Escitalopram Oxalate 20 mg Tablet PO SCH (20:57)
[2019-10-09] MEDS: Acetaminophen 325 MG TAB PO PRN (20:57)
[2019-10-09] MEDS: Leflunomide 10 mg Tablet PO SCH (21:00)
[2019-10-10] MEDS: Levothyroxine Sodium 125 MCG TAB PO SCH (06:32)
[2019-10-10] MEDS: Amiodarone 450 MG, Admixture Fee 1 EACH in Dextrose 5% in Water 250 ML IVPB SCH (06:33)
--- NOTE | 2019-10-10 07:59 | CON ---
DATE OF CONSULTATION: 10/09/2019 HISTORY OF PRESENT ILLNESS: This is a 78-year-old white female, who presents after a presyncopal episode while the patient fell and skinned her right elbow. The patient reports she has had fluttering over the past couple of months and also reports she had a presyncopal episode in August, which she thinks may have been similar. The patient went to the ER. She is found to be in A-flutter with pauses up to [address] Tobias as well as Dr. Lange were consulted. She was sent here to the ICU on dobutamine for monitoring due to pauses if she were to require transcutaneous pacing. ALLERGIES: STATINS. HOME MEDICATIONS: 1. Escitalopram 20 mg p.o. at bedtime. 2. Certolizumab one pen subcutaneously q.30 days. 3. Repatha one pen subcutaneously as directed. 4. Vitamin D3 4000 units p.o. daily. 5. Melatonin 3 capsules p.o. at bedtime. 6. Vitamin C softgel one cap p.o. b.i.d. 7. Multivitamin daily. 8. Vitamin B12. 9. Baby aspirin daily. 10. Amlodipine 1 tablet p.o. q.a.m. 11. Levothyroxine 125 mcg p.o. q.a.m. 12. Leflunomide 10 mg p.o. at bedtime. 13. Hydralazine 1 tablet p.o. b.i.d. 14. Metoprolol 100 mg p.o. q.a.m. 15. Gabapentin 600 mg p.o. at bedtime. PAST MEDICAL HISTORY: Significant for atrial fibrillation; rheumatoid arthritis ; hypertension; hyperlipidemia; coronary artery disease; urinary incontinence; hypothyroidism; history of colon cancer in 2014, status post surgery, chemotherapy and radiation; CKD. PAST SURGICAL HISTORY: 1. Appendectomy. 2. Hysterectomy. 3. Right total knee replacement. 4. Foot surgery. 5. Right colectomy. 6. Cardiac catheterization. 7. Lumbar surgery. SOCIAL HISTORY: The patient denies any tobacco, alcohol or drug use. REVIEW OF SYSTEMS: GENERAL: The patient denies fevers, chills or headache. EYES: The patient denies vision changes or eye pain. EARS: The patient denies difficulty hearing or ear pain. NOSE/THROAT: The patient denies cough, congestion or rhinorrhea. CARDIAC: The patient reports palpitations. Denies chest pain. LUNGS: The patient denies cough. Denies shortness of breath. ABDOMEN: The patient denies nausea, vomiting, abdominal pain, diarrhea or constipation. : No dysuria, + urinary incontinence EXTREMITIES: The patient denies any swelling or rashes. PSYCH: No depression or anxiety. PHYSICAL EXAMINATION: VITAL SIGNS: Temperature 97.7, heart rate 100, blood pressure 137/79, respiratory rate 21, and O2 saturation 100% on room air. GENERAL: Elderly white female, lying in bed, in no acute distress. HEAD: Normocephalic and atraumatic. CARDIAC: Irregularly irregular rhythm. No murmur, rub or gallop. LUNGS: Bilaterally clear to auscultation. No wheeze or crackles. ABDOMEN: Soft, nontender to palpation. Positive bowel sounds. EXTREMITIES: Cap refill is less than 2 seconds. No edema. SKIN: No rashes or lesions. NEUROLOGIC: The patient is alert and oriented to person, place, and time. Strength 5/5 in upper and lower extremities. Cranial nerves 2 through 12 grossly intact. PSYCHIATRIC: Normal mood and affect. LABORATORY DATA: White blood cells 5.3, hemoglobin 12.7, and platelets 202. Sodium 139, potassium 3.0, chloride 105, carbon dioxide 24, BUN 25, creatinine 1.22, and estimated GFR 43. TSH slightly elevated at 5.1. Troponin is indeterminate at 0.03. IMAGING DATA: Chest x-ray, 10/08/2019; impression, no acute process ASSESSMENT AND PLAN: 1. Atrial fibrillation and flutter with prolonged pauses. The patient had a pacemaker placed with Dr. Lange this AM. TYRX absorbable antibacterial envelope placed during pacemaker insertion. Patient is to remain on an amiodarone drip overnight. The right IJ sheath to be removed. The patient is stable for transfer to the telemetry. Echo pending. 2. Hypertension. Continue home medications. 3. Peripheral neuropathy. Continue home medications. 4. Hyperlipidemia. Continue Repatha. 5. Potassium of 3.0, hypokalemia. I will replace this with 80 mg IV potassium. AM mag pending. 6. Hypothyroidism. TSH slightly elevated. Continue home medications. 7. CKD 3B, GFR at baseline. Case discussed with Dr. Eldridge. Job ID: [id number] [facility]
[2019-10-10] MEDS: hydrALAZINE 25 MG TAB PO SCH ×2 (08:32→20:48)
[2019-10-10] MEDS: Famotidine 20 MG TAB PO SCH (08:33)
--- NOTE | 2019-10-10 09:52 | PRG ---
DATE OF SERVICE: 10/10/2019 SERVICE: Pulmonary Medicine. INTERVAL HISTORY: The patient is doing really well from respiratory standpoint. Breathing comfortably. I woke her up from a very nice sleep throughout this morning. She was cool, calm, and collected. She had no overnight events. Otherwise, she indicates that her appetite is improved. Her strength is better. She is not feeling lightheaded or dizzy. Nursing reports no overnight events. PHYSICAL EXAMINATION: VITAL SIGNS: Afebrile. Pulse 60, blood pressure 149/80, respirations 21, saturation 95%, currently on room air. GENERAL: The patient is awake and alert, in no apparent distress. LUNGS: Decent air entry. No prolonged expiratory phase or wheezing is appreciated. HEART: Normal rate regular. ABDOMEN: Soft, nontender, nondistended, bowel sounds are positive. MUSCULOSKELETAL: No cyanosis or clubbing. There is no pitting in the bilateral lower extremities. IMAGING: Echocardiogram shows a normal ejection fraction. Mild valvular abnormality. ASSESSMENT: 1. Presyncope. 2. Atrial fibrillation with very slow ventricular response, symptomatic. 3. Hypertension. 4. Hypokalemia. DISCUSSION AND PLAN: The patient is stable for transition out of the ICU to the floor. Magnesium was ordered, but the potassium was not. We will see if we can add a basic metabolic profile onto morning laboratories. At this point, the patient is stable for transition out of the ICU to the telemetry unit. When she leaves the ICU, she will have no further requirements for inpatient Pulmonary Critical Care opinion, and I will sign off. Please call with additional questions or concerns through time. Job ID: [id number]
[2019-10-10 09:58] LABS: Anion Gap 13 mmol/L (10-20); BUN (Urea Nitrogen) 26 mg/dL (9.8-20.1); Calc. Creatinine Clearance 39 mL/min (70-130); Calcium 8.6 mg/dL (7.8-10.44); Carbon Dioxide 22 mmol/L (23-31); Chloride 106 mmol/L (98-107); Estimated GFR-MDRD 32; Glucose 88 mg/dL (83-110); Potassium 3.4 mmol/L (3.5-5.1); Sodium 138 mmol/L (136-145)
[2019-10-10] MEDS: Acetaminophen 325 MG TAB PO PRN (13:45)
[2019-10-10] MEDS ORDERED: Amiodarone 200 MG TAB PO SCH (13:45)
--- NOTE | 2019-10-10 15:40 | PRG ---
DATE OF SERVICE: 10/10/2019 SUBJECTIVE: No complaints. Resting comfortably. No chest discomfort, dyspnea, syncope, palpitations, or falls. OBJECTIVE: GENERAL: Alert and oriented x4, well groomed. Mood and affect normal. VITAL SIGNS: Heart rate 60, respiratory rate 12, oxygen saturation 97% on room air, blood pressure 130/61, pulse is 80. HEENT: No lesions. Sclerae clear. SKIN: No lesions. Skin incision site shows no evidence of hematoma or drainage. CARDIOVASCULAR: Regular rate and rhythm. No murmurs, gallops, or rubs. LUNGS: Clear to auscultation bilaterally. EXTREMITIES: No cyanosis, clubbing, or edema. IMPRESSION: 1. Sick sinus syndrome with symptomatic bradycardia. A dual-chamber pacemaker placed without complication. Chest x-ray and device checked today are normal. 2. Typical atrial flutter, has converted to sinus rhythm and maintained sinus rhythm on intravenous amiodarone. 3. Paroxysmal atrial fibrillation, maintaining sinus rhythm on intravenous amiodarone. PLAN: 1. Discontinue intravenous amiodarone. 2. Start amiodarone 200 mg p.o. b.i.d. with food for approximately 1 month. 3. Plan cavotricuspid isthmus ablation and pulmonary vein isolation in about a month. 4. Okay to discharge from my standpoint tomorrow if she maintains sinus rhythm on oral amiodarone. 5. We will see her back in our clinic in 2 weeks. We will arrange followup. Job ID: [id number]
--- NOTE | 2019-10-10 17:30 | PDOC.HOSPP ---
- Subjective Encounter Date: 10/10/19 Encounter Time: 09:00 Subjective: Pt seen for followup re: atrial flutter. Feels better, no complaints today. - Objective Vital Signs & Weight: Vital Signs (12 hours) Temp Pulse Pulse Pulse BP BP BP 10/10/19 09:40 61 60 130/61 151/65 H 10/10/19 08:32 60 149/80 H 10/10/19 08:00 98.1 F Pulse Ox Pulse Ox Pulse Ox 10/10/19 09:40 100 100 10/10/19 08:32 10/10/19 08:00 100 Weight Weight 179 lb 6.4 oz Most Recent Monitor Data Heart Rate from ECG 60 NIBP 159/50 NIBP BP-Mean 86 Respiration from ECG 16 SpO2 98 I&O: 10/09/19 10/10/19 10/11/19 06:59 06:59 06:59 Intake Total 28 1647.2 600 Output Total 150 1225 300 Balance -122 422.2 300 Result Diagrams: 10/09/19 03:06 10/10/19 03:00 Additional Labs: Labs and MARs reviewed by [facility] Hospitalist ROS - Review of Systems Respiratory: denies: cough, shortness of breath, SOB with excertion, pleuritic pain, wheezing Cardiovascular: denies: chest pain, palpitations, orthopnea, paroxysmal noc. dyspnea, edema, light headedness - Medication Medications: Active Medications Generic Name Dose Route Start Last Admin Trade Name Freq PRN Reason Stop Dose Admin Acetaminophen 650 mg 10/08/19 20:13 10/10/19 13:45 Tylenol PO 650 mg Q4H PRN Administration Headache/Fever/Mild Pain (1-3) Escitalopram Oxalate 20 mg 10/08/19 21:00 10/09/19 20:57 Lexapro PO 20 mg HS DARRIAN Administration Famotidine 20 mg 10/09/19 09:00 10/10/19 08:33 Pepcid PO 20 mg DAILY DARRIAN Administration Gabapentin 600 mg 10/08/19 21:00 10/09/19 20:56 Neurontin PO 600 mg HS DARRIAN Administration Hydralazine HCl 100 mg 10/08/19 21:00 10/10/19 08:32 Apresoline PO 100 mg BID DARRIAN Administration Leflunomide 10 mg 10/09/19 21:00 10/09/19 21:00 Arava PO 10 mg HS DARRIAN Administration Levothyroxine Sodium 125 mcg 10/09/19 06:00 10/10/19 06:32 Synthroid PO 125 mcg 0600 DARRIAN Administration - Exam General Appearance: awake alert Eye: anicteric sclera ENT: moist mucosa Neck: supple Heart: RRR Respiratory: CTAB, no rales Gastrointestinal: soft, non-tender Musculoskeletal: normal tone, normal strength Psychiatric: normal affect, normal behavior Hosp A/P - Plan plan discussed w/ family, out of bed/ambulate - Assessment (1) Atrial flutter Code(s): I48.92 - UNSPECIFIED ATRIAL FLUTTER Status: Acute (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 - SICK SINUS SYNDROME Status: Acute (3) Rheumatoid arthritis Code(s): M06.9 - RHEUMATOID ARTHRITIS, UNSPECIFIED Status: Chronic (4) CKD (chronic kidney disease) stage 3, GFR 30-59 ml/min Code(s): N18.3 - CHRONIC KIDNEY DISEASE, STAGE 3 (MODERATE) Status: Chronic (5) Dyslipidemia Code(s): E78.5 - HYPERLIPIDEMIA, UNSPECIFIED Status: Chronic (6) Hypertension Code(s): I10 - ESSENTIAL (PRIMARY) HYPERTENSION Status: Chronic Qualifiers: Hypertension type: essential hypertension Qualified Code(s): I10 - Essential (primary) hypertension (7) Hypothyroidism Code(s): E03.9 - HYPOTHYROIDISM, UNSPECIFIED Status: Chronic (8) Sinus pause Code(s): I45.5 - OTHER SPECIFIED HEART BLOCK Status: Resolved - Plan s/p pacemaker. Switch to oral amiodarone. Likely home tomorrow. HTN controlled.
[2019-10-10] MEDS: Amiodarone 200 MG TAB PO SCH (20:48)
[2019-10-10] MEDS: Escitalopram Oxalate 20 mg Tablet PO SCH (20:49)
[2019-10-10] MEDS: Gabapentin 300 MG CAP PO SCH (20:49)
[2019-10-10] MEDS: Leflunomide 10 mg Tablet PO SCH (20:56)
[2019-10-11] MEDS: Levothyroxine Sodium 125 MCG TAB PO SCH (04:44)
[2019-10-11] MEDS: Famotidine 20 MG TAB PO SCH (08:40)
[2019-10-11] MEDS: hydrALAZINE 25 MG TAB PO SCH (08:40)
[2019-10-11] MEDS: Amiodarone 200 MG TAB PO SCH (08:41)
--- NOTE | 2019-10-11 10:18 | PDOC.CPN ---
- Subjective Date: 10/11/19 Time: 10:16 Interval history: Patient without complaint. overnight had short run aflutter. Asymptomatic. - Review of Systems General: denies: fever/chills, weight/appetite/sleep changes, night sweats, fatigue Respiratory: denies: cough, congestion, shortness of breath, exercise intolerance Cardiovascular: denies: chest pain, palpitation, edema, paroxysmal nocturnal dyspnea, orthopnea Gastrointestinal: denies: nausea, vomiting, diarrhea, constipation, abd pain, GI bleeding Musculoskeletal: denies: pain, tenderness, stiffness, swelling, arthritis/ arthralgias Neurological: denies: numbness, syncope, seizure, weakness - Objective Allergies/Adverse Reactions: Allergies Allergy/AdvReac Type Severity Reaction Status Date / Time Dvnraqn-Nrv-Egb Reductase Allergy Verified 02/06/19 15:30 Inhibitor Visit Medications: Current Medications Acetaminophen (Tylenol) 650 mg PO Q4H PRN PRN Reason: Headache/Fever/Mild Pain (1-3) Last Admin: 10/10/19 13:45 Dose: 650 mg Acetaminophen (Tylenol) 650 mg VT Q4H PRN PRN Reason: Headache/Fever/Mild Pain (1-3) Hydrocodone Bitart/Acetaminophen (Rowley 5/325) 1 tab PO Q4H PRN PRN Reason: Mild Pain Hydrocodone Bitart/Acetaminophen (Rowley 5/325) 2 tab PO Q4H PRN PRN Reason: For Moderate Pain Amiodarone HCl (Cordarone) 200 mg PO BID [facility] Last Admin: 10/11/19 08:41 Dose: 200 mg Escitalopram Oxalate (Lexapro) 20 mg PO [facility] Last Admin: 10/10/19 20:49 Dose: 20 mg Famotidine (Pepcid) 20 mg PO DAILY [facility] Last Admin: 10/11/19 08:40 Dose: 20 mg Gabapentin (Neurontin) 600 mg PO [facility] Last Admin: 10/10/19 20:49 Dose: 600 mg Guaifenesin/Dextromethorphan (Robitussin Dm) 15 ml PO Q4H PRN PRN Reason: Cough Hydralazine HCl (Apresoline) 100 mg PO BID [facility] Last Admin: 10/11/19 08:40 Dose: 100 mg Leflunomide (Arava) 10 mg PO [facility] Last Admin: 03/13/20 20:56 Dose: 10 mg Levothyroxine Sodium (Synthroid) 125 mcg PO 0600 DARRIAN Last Admin: 10/11/19 04:44 Dose: 125 mcg Ondansetron HCl (Zofran Odt) 4 mg PO Q6H PRN PRN Reason: Nausea/Vomiting Ondansetron HCl (Zofran) 4 mg IVP Q6H PRN PRN Reason: Nausea/Vomiting Senna/Docusate Sodium (Senokot S) 2 tab PO BIDPRN PRN PRN Reason: Constipation Sodium Chloride (Flush - Normal Saline) 10 ml IVF PRN PRN PRN Reason: Saline Flush Vital Signs & Weight: Vital Signs Temp Pulse Resp BP BP BP Pulse Ox 10/11/19 08:40 61 121/66 10/11/19 07:11 99.3 F 70 16 129/58 L 92 L 10/11/19 04:00 98.6 F 67 18 124/60 92 L Weight 179 lb 6.4 oz - Physical Exam General: alert & oriented x3, appears well, no apparent distress HEENT: mucus membranes moist Neck: supple neck Cardiac: regular rate and rhythm, other (pacer site without discharge, erythema) Lungs: clear to auscultation, other Neuro: grossly intact Abdomen: unremarkable Extremities: no cyanosis Skin: clear Musculoskeletal: normal range of motion - Labs Result Diagrams: 10/09/19 03:06 10/10/19 03:00 Troponin/CKMB CK-MB (CK-2) 6.5 ng/mL (0-6.6) 10/08/19 14:22 Troponin I 0.030 ng/mL (< 0.028) H 10/08/19 14:22 - Assessment/Plan Assessment/Plan: 1. SSS s/p pacer 2. AFlutter 3. paroxysmal AF Stable. Patient with recurrent atrial arrhythmias and not on ACT. Discussed CHADS2-VASc and risk of CVA, including risks/benefits of ACT. Patient chooses NOAC. Add Eliquis. Ok for discharge. F/U in 3-4 weeks with cardio. F/U in 1-2 weeks with Anisa as instructed.
[2019-10-11 11:36] VITALS: TEMP 98.6
[2019-10-11 11:57] VITALS: BP 125/58
--- NOTE | 2019-10-11 15:37 | EKG ---
Test Reason : Blood Pressure : / mmHG Vent. Rate : 097 BPM Atrial Rate : 271 BPM P-R Int : 000 ms QRS Dur : 110 ms QT Int : 372 ms P-R-T Axes : 245 -44 124 degrees QTc Int : 472 ms Atrial flutter with variable A-V block Left axis deviation Pulmonary disease pattern Incomplete right bundle branch block Left ventricular hypertrophy with repolarization abnormality Abnormal ECG Confirmed by RAMÍREZ ROMANO M.D. ([id number]), story editor GARRETT CHARLES ([id number]) on 10/11/2019 3:37:23 PM Referred By: Confirmed By:RAMÍREZ ROMANO M.D.
[2019-10-11] MEDS ORDERED: Apixaban 5 MG TAB PO SCH (21:00)
--- NOTE | 2019-10-12 00:05 | DIS ---
DATE OF ADMISSION: 10/08/2019 DATE OF DISCHARGE: 10/11/2019 PRIMARY CARE PROVIDER: Myra Rose MD DISCHARGE DIAGNOSES: 1. Atrial flutter. 2. Tachycardia bradycardia syndrome. CONDITION OF PATIENT ON THE DAY OF DISCHARGE: Stable. I assessed Ms. Chen on the day of discharge. She denies any chest pain or shortness of breath. Vital signs are stable. S1 and S2 are heard, regular. Lungs are clear to auscultation bilaterally. CONSULTATIONS DURING THIS HOSPITALIZATION: 1. Cardiology, Dr. Tobias. 2. Electrophysiology, Dr. Lange. 3. Pulmonary and Critical Care Medicine, Dr. Eldridge. DISCHARGE MEDICATIONS: She has been started on amiodarone 200 mg 2 times a day. Otherwise, no change was made to her pre-admission home medications as dictated on Dr. Brown's history and physical note dated October 08, 2019. HOSPITAL COURSE: Ms. Chen is a pleasant 78-year-old lady, who was admitted to [facility] on October 08, 2019, for atrial flutter as well as sinus pauses. She was admitted to the Critical Care Unit. She was seen by Cardiology and Electrophysiology Services. She underwent permanent pacemaker placement. She has been started on amiodarone. She is being discharged home in a stable condition. 2D echocardiogram showed left ventricular ejection fraction of 55% to 60%, mild mitral regurgitation, and mild tricuspid regurgitation. POST ACUTE CARE FOLLOWUP: With primary care provider in 3 days, with Dr. Lange in 2 to 3 weeks, and with Dr. Tobias in 3 to 4 weeks. DIET: Heart healthy. ACTIVITY: As tolerated. DISCHARGE DESTINATION: Home. TIME SPENT: Total amount of time spent coordinating this discharge: 33 minutes. Job ID: [id number]
--- NOTE | 2019-10-13 12:58 | DIS ---
DATE OF ADMISSION: 10/08/2019 DATE OF DISCHARGE: 10/11/2019 ADDENDUM: Please note that Ms. Chen' discharge medications also include apixaban 5 mg 2 times a day. Job ID: [id number]
== END 2019-10-11 12:15 | disposition home health service (06) | DRG 244 ==
LOC: ERS 14:06 → IMCU/EMU 17:27 → CCU 10-09 01:25 → 2NO 10-10 17:27
PROVIDERS: ADMIT Emergency Medicine; ATTEND Emergency Medicine
PROC: 0JH606Z Insertion of Pacemaker, Dual Chamber into Chest Subcutaneous Tissue and Fascia, Open Approach (ICD-10-PCS; principal; 2019-10-09)
PROC: 02H63JZ Insertion of Pacemaker Lead into Right Atrium, Percutaneous Approach (ICD-10-PCS; 2019-10-09)
PROC: 02HK3JZ Insertion of Pacemaker Lead into Right Ventricle, Percutaneous Approach (ICD-10-PCS; 2019-10-09)
PROC: 4A023N7 Measurement of Cardiac Sampling and Pressure, Left Heart, Percutaneous Approach (ICD-10-PCS; 2019-10-09)
DX: I48.92 Unspecified atrial flutter (principal); I49.5 Sick sinus syndrome; E78.00 Pure hypercholesterolemia, unspecified; M06.9 Rheumatoid arthritis, unspecified; I25.10 Atherosclerotic heart disease of native coronary artery without angina pectoris; R32 Unspecified urinary incontinence; E03.9 Hypothyroidism, unspecified; N18.3 Chronic kidney disease, stage 3 (moderate); E11.40 Type 2 diabetes mellitus with diabetic neuropathy, unspecified; I12.9 Hypertensive chronic kidney disease with stage 1 through stage 4 chronic kidney disease, or unspecified chronic kidney disease; E05.90 Thyrotoxicosis, unspecified without thyrotoxic crisis or storm; K21.9 Gastro-esophageal reflux disease without esophagitis; M51.26 Other intervertebral disc displacement, lumbar region; I48.0 Paroxysmal atrial fibrillation; E78.2 Mixed hyperlipidemia; D63.1 Anemia in chronic kidney disease; E11.42 Type 2 diabetes mellitus with diabetic polyneuropathy; Z96.651 Presence of right artificial knee joint; Z90.49 Acquired absence of other specified parts of digestive tract; Z90.710 Acquired absence of both cervix and uterus; Z79.4 Long term (current) use of insulin; Z79.01 Long term (current) use of anticoagulants; Z85.038 Personal history of other malignant neoplasm of large intestine
CPT/HCPCS: 33208; 36415; 36556; 71045; 75820; 80048; 80053; 82553; 83735; 84443; 84484; 85025; 93005; 93010; 93306; 96374; 99152; 99153; 99292; C1785; C1898; J0282; J0690; J1250; J1580; J2001; J2250; J3010; J3480; J7050; J7070; Q9967

== ENCOUNTER 2020-11-18 22:19 | Emergency (ER) | payer MEDICARE ==
[2020-11-18 22:40] LABS: #Basophils 0.1 thou/uL (0.0-0.2); #Eosinphils 0.1 thou/uL (0.0-0.7); #Lymphocytes 2.1 thou/uL (1.20-3.40); #Monocytes 1.2 thou/uL (0.11-0.59); #Neutrophils 4.5 thou/uL (1.40-6.50); %Basophils 0.9 % (0.0-1.0); %Eosinophils 1.8 % (0.0-10.0); %Lymphocytes 26.3 % (21.0-51.0); %Monocytes 14.7 % (0.0-10.0); %Neutrophils 56.3 % (42.0-75.0); Hemoglobin 14.5 g/dL (12.0-16.0); Mean Corpuscular HGB CONC 33.1 g/dL (32.0-36.0); Mean Corpuscular Hemoglobin 29.9 pg (27.0-31.0); Mean Corpuscular Volume 90.4 fL (78.0-98.0); Mean Platelet Volume 6.7 fL (7.4-10.4); Platelet Count 259 thou/uL (130-400); RBC Distribution Width 13.3 % (11.5-14.5); Red Blood Cell (RBC) Count 4.84 mill/uL (4.20-5.40)
[2020-11-18 23:01] LABS: ALT (SGPT) 22 U/L (8-55); AST (SGOT) 12 U/L (5-34); Albumin 4.2 g/dL (3.4-4.8); Alkaline Phosphatase 75 U/L (40-110); Anion Gap 15 mmol/L (10-20); BUN (Urea Nitrogen) 41 mg/dL (9.8-20.1); Bilirubin, Total 0.3 mg/dL (0.2-1.2); Calc. Creatinine Clearance 0 mL/min (70-130); Calcium 9.4 mg/dL (7.8-10.44); Carbon Dioxide 21 mmol/L (23-31); Chloride 108 mmol/L (98-107); Globulin 2.6 g/dL (2.4-3.5); Glucose 156 mg/dL (83-110); Lipase 70 U/L (8-78); Potassium 3.7 mmol/L (3.5-5.1); Protein, Total 6.8 g/dL (5.8-8.1); Sodium 140 mmol/L (136-145)
== END 2020-11-18 23:25 | disposition home or self-care (01) ==
LOC: ERS 22:19
DX: I12.9 Hypertensive chronic kidney disease with stage 1 through stage 4 chronic kidney disease, or unspecified chronic kidney disease (principal); N18.9 Chronic kidney disease, unspecified; E78.5 Hyperlipidemia, unspecified; E78.00 Pure hypercholesterolemia, unspecified; M06.9 Rheumatoid arthritis, unspecified; I48.91 Unspecified atrial fibrillation; Z79.82 Long term (current) use of aspirin; Z79.899 Other long term (current) drug therapy; Z79.01 Long term (current) use of anticoagulants
CPT/HCPCS: 36415; 83690; 84484; 85025; 93005; 94760

== ENCOUNTER 2020-12-09 13:43 | Emergency (ER) | payer MEDICARE | END 2020-12-09 15:30 | disposition home or self-care (01) | LOC: ERS 13:43 | DX: M25.462 Effusion, left knee (principal); M22.8X2 Other disorders of patella, left knee; E78.5 Hyperlipidemia, unspecified; E78.00 Pure hypercholesterolemia, unspecified; I10 Essential (primary) hypertension; M06.9 Rheumatoid arthritis, unspecified; Z79.899 Other long term (current) drug therapy; Z79.82 Long term (current) use of aspirin ==

== ENCOUNTER 2021-01-07 21:21 | Emergency (ER) | payer MEDICARE ==
[2021-01-07] MEDS ORDERED: Morphine 2 MG/ML VIAL ONE (23:01)
[2021-01-07] MEDS ORDERED: HYDROcodone/Acetaminophen 5/325 mg Tablet ONE (23:01)
== END 2021-01-08 00:20 | disposition home or self-care (01) ==
LOC: ERS 21:21
DX: M25.562 Pain in left knee (principal); G89.29 Other chronic pain; E78.5 Hyperlipidemia, unspecified; E78.00 Pure hypercholesterolemia, unspecified; I10 Essential (primary) hypertension; M06.9 Rheumatoid arthritis, unspecified; N28.9 Disorder of kidney and ureter, unspecified; Z79.01 Long term (current) use of anticoagulants; Z79.899 Other long term (current) drug therapy; Z79.82 Long term (current) use of aspirin; M79.605 Pain in left leg
CPT/HCPCS: 93971; 96372; 99283; J2270

== ENCOUNTER 2021-05-04 09:49 | Outpatient (CLI) | payer MEDICARE ==
[2021-05-04 11:06] LABS: Hemoglobin 12.2 g/dL (12.0-15.5); Mean Corpuscular HGB CONC 31.3 g/dL (32.0-36.0); Mean Corpuscular Hemoglobin 29.7 pg (27.0-33.0); Mean Corpuscular Volume 94.9 fl (81.6-98.3); Mean Platelet Volume 8.8 fl (7.4-10.4); Platelet Count 268 10x3/uL (150-450); RBC Distribution Width 15.9 % (11.5-14.5); Red Blood Cell (RBC) Count 4.11 10x6/uL (3.90-5.03); White Blood Cell (WBC) Count 9.3 10x3/uL (3.5-10.5)
[2021-05-04 11:25] LABS: INR-International Normal Ratio 1.1; Prothrombin Time 11.6 sec (9.5-12.1)
[2021-05-04 11:37] LABS: MDiff Complete? YES; Manual Diff?? YES
[2021-05-04 11:38] LABS: Anion Gap 14 mmol/L (10-20); BUN (Urea Nitrogen) 24 mg/dL (9.8-20.1); Calc. Creatinine Clearance 0 mL/min (70-130); Calcium 10.1 mg/dL (7.8-10.44); Carbon Dioxide 24 mmol/L (23-31); Chloride 106 mmol/L (98-107); Glucose 76 mg/dL (83-110); Potassium 4.2 mmol/L (3.5-5.1); Sodium 140 mmol/L (136-145)
[2021-05-04 11:41] LABS: Band 9 % (5-11); Eosinophils 1 % (0-10); Lymphocytes 9 % (21-51); Monocytes 18 % (0-10); Neutrophil 61 % (42-75)
[2021-05-04 11:42] LABS: Platelet Morphology Comment Appears Adequate
[2021-05-04 11:43] LABS: Stomatocytes SLIGHT = 2-5 cells (100X) (0-1/hpf)
[2021-05-04 19:28] LABS: SARS-CoV-2 PCR by NAA Not Detected (NotDetected)
== END 2021-05-04 09:50 | disposition home or self-care (01) ==
LOC: LABBT 09:49
PROVIDERS: ATTEND Orthopaedic Surgery
DX: Z01.818 Encounter for other preprocedural examination (principal); M17.12 Unilateral primary osteoarthritis, left knee; Z20.822 Contact with and (suspected) exposure to COVID-19
CPT/HCPCS: 71046; 80048; 85025; 85610; 86850; 86900; 86901; 87081; 93005; U0003; U0005; 93010

== ENCOUNTER 2021-05-09 05:34 | Day surgery (SDC) | payer MEDICARE ==
[2021-05-04 11:06] LABS: Hemoglobin 12.2 g/dL (12.0-15.5); Mean Corpuscular HGB CONC 31.3 g/dL (32.0-36.0); Mean Corpuscular Hemoglobin 29.7 pg (27.0-33.0); Mean Corpuscular Volume 94.9 fl (81.6-98.3); Mean Platelet Volume 8.8 fl (7.4-10.4); Platelet Count 268 10x3/uL (150-450); RBC Distribution Width 15.9 % (11.5-14.5); Red Blood Cell (RBC) Count 4.11 10x6/uL (3.90-5.03); White Blood Cell (WBC) Count 9.3 10x3/uL (3.5-10.5)
[2021-05-04 11:25] LABS: INR-International Normal Ratio 1.1; Prothrombin Time 11.6 sec (9.5-12.1)
[2021-05-04 11:37] LABS: MDiff Complete? YES; Manual Diff?? YES
[2021-05-04 11:38] LABS: Anion Gap 14 mmol/L (10-20); BUN (Urea Nitrogen) 24 mg/dL (9.8-20.1); Calc. Creatinine Clearance 0 mL/min (70-130); Calcium 10.1 mg/dL (7.8-10.44); Carbon Dioxide 24 mmol/L (23-31); Chloride 106 mmol/L (98-107); Glucose 76 mg/dL (83-110); Potassium 4.2 mmol/L (3.5-5.1); Sodium 140 mmol/L (136-145)
[2021-05-04 11:41] LABS: Band 9 % (5-11); Eosinophils 1 % (0-10); Lymphocytes 9 % (21-51); Monocytes 18 % (0-10); Neutrophil 61 % (42-75)
[2021-05-04 11:42] LABS: Platelet Morphology Comment Appears Adequate
[2021-05-04 11:43] LABS: Stomatocytes SLIGHT = 2-5 cells (100X) (0-1/hpf)
[2021-05-04 19:28] LABS: SARS-CoV-2 PCR by NAA Not Detected (NotDetected)
[2021-05-09] MEDS ORDERED: ceFAZolin 2 GM/DEX 5% 100 ML BAG ONE (05:59)
[2021-05-09] MEDS ORDERED: Sodium Chloride 0.9% 100 ML ONE (05:59)
[2021-05-09] MEDS ORDERED: Tranexamic Acid 1,000 MG/10 ML VIAL ONE ×2 (05:59→09:57)
[2021-05-09] MEDS ORDERED: Vancomycin 1.5 GRAM/300 ML BAG 1.5 GM in Premix Bag 1 BAG IVPB SCH ×2 (06:15→18:00)
[2021-05-09] MEDS ORDERED: Fentanyl 100 MCG/2 ML VIAL ONE ×3 (06:34→10:37)
[2021-05-09] MEDS ORDERED: Midazolam HCl 2 mg/2 ml Vial ONE (06:34)
[2021-05-09] MEDS ORDERED: Lidocaine 1% (PF) 30 ML VIAL ONE (06:34)
[2021-05-09] MEDS ORDERED: Dexamethasone 20 MG/5 ML VIAL ONE (06:45)
[2021-05-09] MEDS ORDERED: Bupivacaine PF 0.5% 30 ML VIAL ONE ×2 (06:45→07:51)
[2021-05-09] MEDS ORDERED: PROPOFOL 200 MG/20 ML VIAL ONE (06:45)
[2021-05-09] MEDS ORDERED: Lidocaine 1% PF 5 ML VIAL ONE (06:45)
[2021-05-09] MEDS ORDERED: Ondansetron PF 4 MG/2 ML Vial ONE (06:45)
[2021-05-09] MEDS ORDERED: PHENYLEPHRINE-NS 100 MCG/ML 10 ML SYRINGE ONE (06:45)
[2021-05-09] MEDS ORDERED: Phenylephrine 10 MG/ML VIAL ONE (07:04)
[2021-05-09] MEDS ORDERED: Fentanyl 100 MCG/2 ML VIAL SLOW IVP PRN (07:18)
[2021-05-09] MEDS ORDERED: Ondansetron PF 4 MG/2 ML Vial IVP PRN ×2 (07:18→08:45)
[2021-05-09] MEDS ORDERED: Zolpidem Tartrate 5 MG TAB PO PRN ×2 (07:18→08:45)
[2021-05-09] MEDS ORDERED: Acetaminophen 325 MG TAB PO PRN (07:18)
[2021-05-09] MEDS ORDERED: HYDROcodone/Acetaminophen 10/325 mg Tablet PO PRN ×3 (07:18→08:45)
[2021-05-09] MEDS ORDERED: traMADol HCl 50 MG TAB PO PRN ×3 (07:18→08:45)
[2021-05-09] MEDS ORDERED: Promethazine HCl 25 MG/ML VIAL IM PRN ×3 (07:18→09:38)
[2021-05-09] MEDS ORDERED: diphenhydrAMINE 25 MG CAP PO PRN (07:18)
[2021-05-09 07:19] LABS: Bilirubin Negative (Negative); Blood, Urine Negative (Negative); Clarity Turbid (Clear); Glucose, Urine (Dipstick) Normal (Negative); Ketone, Urine Negative (Negative); Leukocyte 500 Leu/uL (Negative); Nitrite 2+ (Negative); Protein, Urine (Dipstick) 30 mg/dL (Neg-Trace); Specific Gravity, Urine 1.011 (1.002-1.036); Squamous Epithelial 0-3 HPF (0-3); Urobilinogen Normal mg/dL (Less than 2); pH, Urine 6.5 (5.0-9.0)
[2021-05-09 07:22] LABS: Bacteria/HPF 3+ HPF (None Seen); RBC/HPF 0-3 HPF (0-3)
[2021-05-09] MEDS ORDERED: cloNIDine 0.1 MG TAB PO PRN (07:22)
[2021-05-09 07:25] LABS: Unclassified Crystals None Seen HPF (None Seen)
[2021-05-09 07:26] LABS: Urine Culture Reflex Yes Yes
[2021-05-09] MEDS ORDERED: Tranexamic Acid 1,000 MG in Sodium Chloride 0.9% 100 ML IVPB SCH (07:30)
[2021-05-09] MEDS ORDERED: Non-Formulary Item 1 EACH (Evolocumab [Repatha Sureclick] 140 MG/ML Pen.Injctr) SQ SCH (07:30)
[2021-05-09] MEDS ORDERED: Vancomycin HCl 1.5 GM in Sodium Chloride 0.9% 250 ML 300 ML IVPB SCH (07:30)
[2021-05-09] MEDS ORDERED: Non-Formulary Item 1 EACH (Icosapent Ethyl 1 GM Capsule) PO SCH (08:00)
[2021-05-09] MEDS ORDERED: Evolocumab [Repatha Sureclick] 140 MG/ML Pen.Injctr SC SCH (08:15)
[2021-05-09] MEDS ORDERED: Fentanyl 100 MCG/2 ML VIAL IV PRN (08:36)
[2021-05-09] MEDS ORDERED: Ropivacaine 0.2% 550 ML 550 ML NERVE BLCK SCH (08:45)
[2021-05-09] MEDS ORDERED: Non-Formulary Item 1 EACH (Multivitamin [Daily Multiple Vitamin] 1 EACH Tablet) PO SCH (09:00)
[2021-05-09] MEDS ORDERED: Non-Formulary Item 1 EACH (Hydralazine Hcl [Hydralazine Hcl] 100 MG Tablet) PO SCH (09:00)
[2021-05-09] MEDS ORDERED: Non-Formulary Item 1 EACH (Cyanocobalamin (Vitamin B-12) [Vitamin B12] 5,000 MCG Tab.Rapd PO SCH (09:00)
[2021-05-09] MEDS ORDERED: Non-Formulary Item 1 EACH (Diltiazem Hcl [Diltiazem 12hr Er] 120 MG Cap.Er.12h) PO SCH (09:00)
[2021-05-09] MEDS ORDERED: Multivit, Therapeutic 1 TAB PO SCH (09:00)
[2021-05-09] MEDS ORDERED: Promethazine HCl 25 MG/ML VIAL IVPB PRN (09:38)
[2021-05-09] MEDS ORDERED: Ondansetron HCl/PF 4 MG/2 ML Vial IVP PRN (09:38)
[2021-05-09] MEDS: Cyanocobalamin (Vitamin B-12) 1,000 MCG TAB PO SCH (12:19)
[2021-05-09] MEDS: CeleCOXIB 100 MG CAP PO SCH (12:19)
[2021-05-09] MEDS: Aspirin 81 mg Enteric Coated Tablet PO SCH ×2 (12:19→19:45)
[2021-05-09] MEDS: hydrALAZINE 25 MG TAB PO SCH ×2 (12:20→19:45)
[2021-05-09] MEDS: Ferrous Gluconate 324 MG TAB PO SCH ×2 (12:20→19:45)
[2021-05-09] MEDS: Multivitamin W/ Minerals 1 TAB PO SCH (12:20)
[2021-05-09] MEDS: Oxybutynin 5 MG TAB PO SCH (12:20)
[2021-05-09] MEDS: Levothyroxine 150 MCG TAB PO SCH (12:20)
[2021-05-09] MEDS: Senokot S 8.6-50 MG TAB PO SCH ×2 (12:20→19:45)
[2021-05-09] MEDS: HYDROcodone/Acetaminophen 10/325 mg Tablet PO PRN ×2 (13:58→19:44)
[2021-05-09] MEDS: Sodium Chloride 0.9% 1,000 ML IV SCH ×3 (13:59→19:50)
[2021-05-09] MEDS ORDERED: CEFAZOLIN 2 GM in Premix Bag 1 BAG IVPB SCH (14:00)
[2021-05-09] MEDS ORDERED: ceFAZolin Sodium/D5W 2 GM in Premix Bag 1 BAG IVPB SCH (14:00)
[2021-05-09 14:03] VITALS: BMI 33.1
[2021-05-09] MEDS ORDERED: FLU VACC QS2021-22(65YR UP)/PF 240 MCG/0.7 ML SYRINGE IM ONE (15:00)
[2021-05-09] MEDS: Icosapent Ethyl 1 GM CAPSULE PO SCH (18:52)
[2021-05-09] MEDS ORDERED: Gabapentin 300 MG CAP PO SCH (21:00)
[2021-05-09] MEDS ORDERED: Escitalopram Oxalate 20 mg Tablet PO SCH (21:00)
[2021-05-10 06:15] LABS: Hemoglobin 10.4 g/dL (12.0-16.0); Mean Corpuscular HGB CONC 33.2 g/dL (32.0-36.0); Mean Corpuscular Volume 93.6 fL (78.0-98.0); Mean Platelet Volume 6.4 fL (7.4-10.4); Platelet Count 251 thou/uL (130-400); RBC Distribution Width 14.3 % (11.5-14.5); Red Blood Cell (RBC) Count 3.36 mill/uL (4.20-5.40); White Blood Cell (WBC) Count 12.9 thou/uL (4.8-10.8)
[2021-05-10] MEDS: HYDROcodone/Acetaminophen 10/325 mg Tablet PO PRN ×2 (07:38→14:33)
[2021-05-10] MEDS: hydrALAZINE 25 MG TAB PO SCH (07:40)
[2021-05-10] MEDS: CeleCOXIB 100 MG CAP PO SCH (07:40)
[2021-05-10] MEDS: Cyanocobalamin (Vitamin B-12) 1,000 MCG TAB PO SCH (07:41)
[2021-05-10] MEDS: Ferrous Gluconate 324 MG TAB PO SCH (07:42)
[2021-05-10] MEDS: Senokot S 8.6-50 MG TAB PO SCH (07:42)
[2021-05-10] MEDS: Oxybutynin 5 MG TAB PO SCH (07:43)
[2021-05-10] MEDS: Aspirin 81 mg Enteric Coated Tablet PO SCH (07:43)
[2021-05-10] MEDS: Levothyroxine 150 MCG TAB PO SCH (07:43)
[2021-05-10] MEDS: Multivitamin W/ Minerals 1 TAB PO SCH (07:43)
[2021-05-10] MEDS ORDERED: Sulfameth/Trimethoprim DS 800-160mg TAB PO SCH (09:00)
[2021-05-10] MEDS ORDERED: Methocarbamol 500 MG TAB PO PRN (09:10)
[2021-05-10] MEDS: Icosapent Ethyl 1 GM CAPSULE PO SCH ×2 (09:24→18:49)
[2021-05-10] MEDS: Sodium Chloride 0.9% 1,000 ML IV SCH (14:34)
[2021-05-10 17:45] VITALS: BP 123/72; TEMP 98.1
[2021-05-13 14:38] LABS: Fungus Stain Final report (.)
== END 2021-05-10 17:45 ==
LOC: SDC 05:34 → SURG A 07:18 → SDC 05-10 17:45
PROVIDERS: ATTEND Orthopaedic Surgery
PROC: 3E0T3BZ Introduction of Anesthetic Agent into Peripheral Nerves and Plexi, Percutaneous Approach (ICD-10-PCS; principal; 2021-05-09)
PROC: 0SRD0J9 Replacement of Left Knee Joint with Synthetic Substitute, Cemented, Open Approach (ICD-10-PCS; 2021-05-09)
DX: M17.12 Unilateral primary osteoarthritis, left knee (principal); M65.862 Other synovitis and tenosynovitis, left lower leg; E78.5 Hyperlipidemia, unspecified; E03.8 Other specified hypothyroidism; I12.9 Hypertensive chronic kidney disease with stage 1 through stage 4 chronic kidney disease, or unspecified chronic kidney disease; N18.30 Chronic kidney disease, stage 3 unspecified; I48.0 Paroxysmal atrial fibrillation; G62.0 Drug-induced polyneuropathy; T45.1X5A Adverse effect of antineoplastic and immunosuppressive drugs, initial encounter; Z88.8 Allergy status to other drugs, medicaments and biological substances; Z79.890 Hormone replacement therapy; Z79.899 Other long term (current) drug therapy; Z85.038 Personal history of other malignant neoplasm of large intestine; Z95.5 Presence of coronary angioplasty implant and graft; Z98.890 Other specified postprocedural states; Z95.0 Presence of cardiac pacemaker; Z90.710 Acquired absence of both cervix and uterus; Z23 Encounter for immunization
CPT/HCPCS: 27447; 64447; 73560; 80048; 81001; 85025; 85027; 85610; 86850; 86900; 86901; 87070; 87075; 87081; 87102; 87116; 87205; 87206 ×2; 90662; 97110; 97116 ×2; 97139; 97530; A4306; C1713; C1776; G0008; U0003; U0005; 36415; 88305; 90471; J0690; J1100; J2001; J2250; J2370; J2405; J2704; J2795; J3010; J3370; J3490; S0020

== ENCOUNTER 2021-05-24 16:10 | Inpatient (IN) | payer MEDICARE ==
[2021-05-24 16:54] LABS: #Basophils 0.1 thou/uL (0.0-0.2); #Eosinphils 0.6 thou/uL (0.0-0.7); #Lymphocytes 1.2 thou/uL (1.20-3.40); #Monocytes 1.1 thou/uL (0.11-0.59); #Neutrophils 6.8 thou/uL (1.40-6.50); %Basophils 0.6 % (0.0-1.0); %Eosinophils 6.1 % (0.0-10.0); %Lymphocytes 12.4 % (21.0-51.0); %Monocytes 10.9 % (0.0-10.0); Hemoglobin 12.3 g/dL (12.0-16.0); Mean Corpuscular Hemoglobin 31.4 pg (27.0-31.0); Mean Corpuscular Volume 95.4 fL (78.0-98.0); Mean Platelet Volume 6.6 fL (7.4-10.4); Platelet Count 307 thou/uL (130-400); RBC Distribution Width 14.8 % (11.5-14.5); Red Blood Cell (RBC) Count 3.92 mill/uL (4.20-5.40); White Blood Cell (WBC) Count 9.8 thou/uL (4.8-10.8)
[2021-05-24] MEDS ORDERED: Morphine 4 MG/ML VIAL ONE ×2 (17:04→19:58)
[2021-05-24] MEDS ORDERED: Clindamycin/D5W 900 mg/50 ml Premix Bag ONE (17:04)
[2021-05-24 17:49] LABS: ALT (SGPT) 25 U/L (8-55); AST (SGOT) 26 U/L (5-34); Albumin 3.6 g/dL (3.4-4.8); Alkaline Phosphatase 89 U/L (40-110); Anion Gap 18 mmol/L (10-20); BUN (Urea Nitrogen) 22 mg/dL (9.8-20.1); Bilirubin, Total 0.5 mg/dL (0.2-1.2); CRP (Inflammatory) 4.88 mg/dL (= or < 0.5); Calc. Creatinine Clearance 0 mL/min (70-130); Calcium 9.9 mg/dL (7.8-10.44); Carbon Dioxide 18 mmol/L (23-31); Chloride 104 mmol/L (98-107); Glucose 113 mg/dL (83-110); Potassium 4.9 mmol/L (3.5-5.1); Protein, Total 7.6 g/dL (5.8-8.1); Sodium 135 mmol/L (136-145)
[2021-05-24] MEDS ORDERED: Senokot S 8.6-50 MG TAB PO PRN (18:21)
[2021-05-24] MEDS ORDERED: Ondansetron PF 4 MG/2 ML Vial IVP PRN (18:21)
[2021-05-24] MEDS ORDERED: Acetaminophen 325 MG TAB PO PRN (18:21)
[2021-05-24 21:15] VITALS: BMI 32.8
[2021-05-24] MEDS: Famotidine 20 MG TAB PO SCH (21:40)
[2021-05-24] MEDS ORDERED: Apixaban 5 MG TAB PO SCH (23:30)
[2021-05-25] MEDS: Clindamycin/D5W 600 MG in Premix Bag 1 BAG IVPB SCH ×3 (02:29→18:12)
[2021-05-25] MEDS: HYDROcodone/Acetaminophen 10/325 mg Tablet PO PRN ×2 (04:02→11:52)
[2021-05-25 06:38] LABS: #Basophils 0.1 thou/uL (0.0-0.2); #Eosinphils 0.7 thou/uL (0.0-0.7); #Lymphocytes 1.2 thou/uL (1.20-3.40); #Monocytes 1.2 thou/uL (0.11-0.59); #Neutrophils 4.8 thou/uL (1.40-6.50); %Basophils 0.7 % (0.0-1.0); %Eosinophils 8.3 % (0.0-10.0); %Lymphocytes 14.7 % (21.0-51.0); %Monocytes 14.8 % (0.0-10.0); %Neutrophils 61.4 % (42.0-75.0); Hemoglobin 10.7 g/dL (12.0-16.0); Mean Corpuscular HGB CONC 32.8 g/dL (32.0-36.0); Mean Corpuscular Hemoglobin 30.9 pg (27.0-31.0); Mean Corpuscular Volume 94.4 fL (78.0-98.0); Mean Platelet Volume 6.5 fL (7.4-10.4); Platelet Count 287 thou/uL (130-400); RBC Distribution Width 14.6 % (11.5-14.5); Red Blood Cell (RBC) Count 3.48 mill/uL (4.20-5.40); White Blood Cell (WBC) Count 7.9 thou/uL (4.8-10.8)
[2021-05-25 06:55] LABS: Anion Gap 13 mmol/L (10-20); BUN (Urea Nitrogen) 18 mg/dL (9.8-20.1); Calc. Creatinine Clearance 57 mL/min (70-130); Calcium 8.8 mg/dL (7.8-10.44); Carbon Dioxide 24 mmol/L (23-31); Chloride 107 mmol/L (98-107); Glucose 97 mg/dL (83-110); Potassium 4.2 mmol/L (3.5-5.1); Sodium 140 mmol/L (136-145)
[2021-05-25] MEDS: Apixaban 5 MG TAB PO SCH ×3 (08:37→20:05)
[2021-05-25 12:01] LABS: SARS-CoV-2 PCR by NAA Not Detected (NotDetected)
[2021-05-25] MEDS ORDERED: Morphine 4 MG/ML VIAL ONE (12:05)
[2021-05-25] MEDS ORDERED: Morphine 2 MG/ML VIAL SLOW IVP SCH (12:15)
[2021-05-25] MEDS ORDERED: Morphine 4 MG/ML VIAL SLOW IVP SCH (12:30)
[2021-05-25] MEDS: Gabapentin 400 MG CAP PO SCH (20:04)
[2021-05-25] MEDS: Famotidine 20 MG TAB PO SCH (20:05)
[2021-05-26] MEDS: Clindamycin/D5W 600 MG in Premix Bag 1 BAG IVPB SCH ×3 (01:08→18:09)
[2021-05-26] MEDS: Apixaban 5 MG TAB PO SCH ×2 (08:04→20:43)
[2021-05-26] MEDS: Ondansetron ODT 4 MG TAB PO PRN (09:13)
[2021-05-26] MEDS: HYDROcodone/Acetaminophen 10/325 mg Tablet PO PRN ×2 (11:46→20:44)
[2021-05-26] MEDS: Famotidine 20 MG TAB PO SCH (20:43)
[2021-05-26] MEDS: Gabapentin 400 MG CAP PO SCH (20:43)
[2021-05-27] MEDS: Clindamycin/D5W 600 MG in Premix Bag 1 BAG IVPB SCH ×3 (01:59→18:53)
[2021-05-27] MEDS: HYDROcodone/Acetaminophen 10/325 mg Tablet PO PRN ×2 (08:59→20:07)
[2021-05-27] MEDS: Apixaban 5 MG TAB PO SCH ×2 (08:59→20:06)
[2021-05-27] MEDS: Ondansetron ODT 4 MG TAB PO PRN (09:02)
[2021-05-27] MEDS: Gabapentin 400 MG CAP PO SCH (20:06)
[2021-05-27] MEDS: Famotidine 20 MG TAB PO SCH (20:07)
[2021-05-28] MEDS: Clindamycin/D5W 600 MG in Premix Bag 1 BAG IVPB SCH (02:31)
[2021-05-28] MEDS ORDERED: traMADol HCl 50 MG TAB PO PRN (07:07)
[2021-05-28] MEDS: Apixaban 5 MG TAB PO SCH (09:04)
[2021-05-28] MEDS: Ondansetron ODT 4 MG TAB PO PRN (09:07)
[2021-05-28 11:54] VITALS: BP 156/77; TEMP 98
== END 2021-05-28 15:18 | DRG 683 ==
LOC: ERS 16:10 → SURG A 17:00
PROVIDERS: ADMIT Family Medicine; ATTEND Internal Medicine
DX: N17.9 Acute kidney failure, unspecified (principal); I48.20 Chronic atrial fibrillation, unspecified; Z20.822 Contact with and (suspected) exposure to COVID-19; E87.1 Hypo-osmolality and hyponatremia; G25.81 Restless legs syndrome; N18.30 Chronic kidney disease, stage 3 unspecified; M85.80 Other specified disorders of bone density and structure, unspecified site; E03.9 Hypothyroidism, unspecified; Z96.653 Presence of artificial knee joint, bilateral; R29.6 Repeated falls; E78.5 Hyperlipidemia, unspecified; E78.00 Pure hypercholesterolemia, unspecified; I12.9 Hypertensive chronic kidney disease with stage 1 through stage 4 chronic kidney disease, or unspecified chronic kidney disease; M06.9 Rheumatoid arthritis, unspecified; F32.A Depression, unspecified; F41.9 Anxiety disorder, unspecified; G62.9 Polyneuropathy, unspecified; T45.1X5A Adverse effect of antineoplastic and immunosuppressive drugs, initial encounter; E86.0 Dehydration; G20 Parkinson's disease; Z90.49 Acquired absence of other specified parts of digestive tract; Z88.8 Allergy status to other drugs, medicaments and biological substances; Z92.21 Personal history of antineoplastic chemotherapy; Z79.01 Long term (current) use of anticoagulants; Z79.82 Long term (current) use of aspirin; Z79.899 Other long term (current) drug therapy; Z82.3 Family history of stroke; Z82.49 Family history of ischemic heart disease and other diseases of the circulatory system; Z81.8 Family history of other mental and behavioral disorders; Z85.038 Personal history of other malignant neoplasm of large intestine; Z95.0 Presence of cardiac pacemaker
CPT/HCPCS: 36415; 70450; 80048; 80053; 84484; 85025; 86140; 87040; 93005; 96365; 96375; 96376; J2270; J3490; Q0162; U0003; U0005

== ENCOUNTER 2021-06-01 15:25 | Inpatient (IN) | payer MEDICARE ==
[~2021-06-01 15:25] MED LIST changes: +Heparin 1,000 UNITS/ML VIAL ONE; -Magnevist 469MG/ML 20 ML VIAL ONE
[2021-06-01] MEDS ORDERED: Lidocaine 1% w/Epinephrine 1:100K 20 ML VIAL ONE (16:34)
[2021-06-01] MEDS ORDERED: Ondansetron PF 4 MG/2 ML Vial IVP PRN (17:53)
[2021-06-01] MEDS ORDERED: Bisacodyl 5 MG TAB PO PRN (17:53)
[2021-06-01] MEDS ORDERED: Senokot S 8.6-50 MG TAB PO PRN (17:53)
[2021-06-01] MEDS ORDERED: Calcium Carbonate 500 MG ChewTAB PO PRN (17:53)
[2021-06-01] MEDS ORDERED: Ondansetron ODT 4 MG TAB PO PRN (17:53)
[2021-06-01] MEDS ORDERED: ceFAZolin 2 GM/DEX 5% 100 ML BAG ONE (18:03)
[2021-06-01] MEDS ORDERED: Vancomycin 1 GM/200 ML BAG ONE (18:03)
[2021-06-01 18:38] LABS: Hemoglobin 12.5 g/dL (12.0-16.0); Mean Corpuscular HGB CONC 33.3 g/dL (32.0-36.0); Mean Corpuscular Hemoglobin 31.4 pg (27.0-31.0); Mean Corpuscular Volume 94.1 fL (78.0-98.0); Mean Platelet Volume 6.9 fL (7.4-10.4); Platelet Count 288 thou/uL (130-400); RBC Distribution Width 14.4 % (11.5-14.5); Red Blood Cell (RBC) Count 3.99 mill/uL (4.20-5.40); White Blood Cell (WBC) Count 6.8 thou/uL (4.8-10.8)
[2021-06-01 18:48] LABS: INR-International Normal Ratio 1.2; Prothrombin Time 15.7 sec (12.0-14.7)
[2021-06-01 18:57] LABS: ALT (SGPT) 41 U/L (8-55); AST (SGOT) 25 U/L (5-34); Alkaline Phosphatase 110 U/L (40-110); Anion Gap 15 mmol/L (10-20); BUN (Urea Nitrogen) 19 mg/dL (9.8-20.1); Bilirubin, Total 0.6 mg/dL (0.2-1.2); CRP (Inflammatory) 1.31 mg/dL (= or < 0.5); Calc. Creatinine Clearance 0 mL/min (70-130); Calcium 9.5 mg/dL (7.8-10.44); Carbon Dioxide 23 mmol/L (23-31); Chloride 108 mmol/L (98-107); Globulin 2.9 g/dL (2.4-3.5); Glucose 86 mg/dL (83-110); Potassium 3.9 mmol/L (3.5-5.1); Protein, Total 6.9 g/dL (5.8-8.1); Sodium 142 mmol/L (136-145)
[2021-06-01 19:11] LABS: Eosinophils 12 % (0-10); Lymphocytes 21 % (21-51); MDiff Complete? YES; Monocytes 7 % (0-10); Neutrophil 57 % (42-75); Platelet Morphology Comment Appears Adequate; RBC Morphology Normal
[2021-06-01] MEDS ORDERED: VANCOMYCIN 1.25 GM/250 ML BAG 1.25 GM in Premix Bag 1 BAG IVPB SCH (21:00)
[2021-06-01 21:42] VITALS: BMI 34.5
[2021-06-01] MEDS: Escitalopram Oxalate 10 mg Tablet PO SCH (21:49)
[2021-06-01] MEDS: Vit A,C & E/Lutein/Minerals Tablet PO SCH (21:50)
[2021-06-01] MEDS: Melatonin 3 MG TAB PO SCH (21:50)
[2021-06-01] MEDS: Famotidine 20 MG TAB PO SCH (21:50)
[2021-06-01] MEDS: Gabapentin 400 MG CAP PO SCH (21:50)
[2021-06-01] MEDS: cefTRIAXone\\ROCEPHIN 1 GM in Sodium Chloride 0.9% 100 ML IVPB SCH (21:53)
[2021-06-01] MEDS: traMADol HCl 50 MG TAB PO PRN (23:04)
[2021-06-01 23:33] LABS: SARS-CoV-2 NAA Rapid Test Not Detected (NotDetected)
[2021-06-02] MEDS: Levothyroxine 150 MCG TAB PO SCH (05:14)
[2021-06-02] MEDS: Vancomycin 1 GM in Premix Bag 1 BAG IVPB SCH (05:15)
[2021-06-02] MEDS: traMADol HCl 50 MG TAB PO PRN ×3 (05:15→21:10)
[2021-06-02] MEDS ORDERED: Vancomycin 1 GM in Premix Bag 1 BAG IVPB SCH (06:00)
[2021-06-02 06:15] LABS: Eosinophils 15 % (0-10); Hemoglobin 11.4 g/dL (12.0-16.0); Lymphocytes 15 % (21-51); MDiff Complete? YES; Mean Corpuscular HGB CONC 32.2 g/dL (32.0-36.0); Mean Corpuscular Hemoglobin 30.3 pg (27.0-31.0); Mean Corpuscular Volume 94.4 fL (78.0-98.0); Mean Platelet Volume 6.7 fL (7.4-10.4); Monocytes 6 % (0-10); Neutrophil 64 % (42-75); Platelet Count 255 thou/uL (130-400); Platelet Morphology Comment Appears Adequate; RBC Distribution Width 14.5 % (11.5-14.5); Red Blood Cell (RBC) Count 3.77 mill/uL (4.20-5.40); White Blood Cell (WBC) Count 5.1 thou/uL (4.8-10.8)
[2021-06-02 06:16] LABS: Anion Gap 12 mmol/L (10-20); BUN (Urea Nitrogen) 13 mg/dL (9.8-20.1); Calc. Creatinine Clearance 75 mL/min (70-130); Calcium 9.1 mg/dL (7.8-10.44); Carbon Dioxide 24 mmol/L (23-31); Chloride 108 mmol/L (98-107); Glucose 88 mg/dL (83-110); Potassium 3.3 mmol/L (3.5-5.1); Sodium 141 mmol/L (136-145)
[2021-06-02] MEDS: Icosapent Ethyl 1 GM CAPSULE PO SCH ×2 (09:32→17:17)
[2021-06-02] MEDS: CeleCOXIB 100 MG CAP PO SCH (09:32)
[2021-06-02] MEDS: Cyanocobalamin (Vitamin B-12) 1,000 MCG TAB PO SCH (09:36)
[2021-06-02] MEDS: Cholecalciferol 1,000 UNITS (25 MCG) TAB PO SCH (09:36)
[2021-06-02] MEDS: Oxybutynin 5 MG TAB PO SCH (09:36)
[2021-06-02] MEDS: Multivit, Therapeutic 1 TAB PO SCH (09:36)
[2021-06-02] MEDS: Vit A,C & E/Lutein/Minerals Tablet PO SCH ×2 (09:36→20:36)
[2021-06-02] MEDS: Famotidine 20 MG TAB PO SCH ×2 (09:37→20:36)
[2021-06-02] MEDS: Gabapentin 400 MG CAP PO SCH (20:32)
[2021-06-02] MEDS: Melatonin 3 MG TAB PO SCH (20:35)
[2021-06-02] MEDS: cefTRIAXone\\ROCEPHIN 1 GM in Sodium Chloride 0.9% 100 ML IVPB SCH (20:36)
[2021-06-02] MEDS: Escitalopram Oxalate 10 mg Tablet PO SCH (20:36)
[2021-06-03 06:00] LABS: Vancomycin, Trough 10.6 ug/mL
[2021-06-03] MEDS: Vancomycin 1 GM in Premix Bag 1 BAG IVPB SCH ×2 (06:28→06:30)
[2021-06-03] MEDS: Levothyroxine 150 MCG TAB PO SCH (06:28)
[2021-06-03] MEDS: Vancomycin HCl 1.25 GM in Sodium Chloride 0.9% 250 ML 250 ML IVPB SCH (06:34)
[2021-06-03] MEDS: Icosapent Ethyl 1 GM CAPSULE PO SCH ×2 (08:35→17:44)
[2021-06-03] MEDS ORDERED: hydrALAZINE 20 MG/ML VIAL SLOW IVP PRN (10:09)
[2021-06-03] MEDS: CeleCOXIB 100 MG CAP PO SCH (12:12)
[2021-06-03] MEDS: Cholecalciferol 1,000 UNITS (25 MCG) TAB PO SCH (12:12)
[2021-06-03] MEDS: Cyanocobalamin (Vitamin B-12) 1,000 MCG TAB PO SCH (12:13)
[2021-06-03] MEDS: Vit A,C & E/Lutein/Minerals Tablet PO SCH ×2 (12:13→20:42)
[2021-06-03] MEDS: Multivit, Therapeutic 1 TAB PO SCH (12:13)
[2021-06-03] MEDS: Famotidine 20 MG TAB PO SCH ×2 (12:13→20:42)
[2021-06-03] MEDS: Oxybutynin 5 MG TAB PO SCH (12:13)
[2021-06-03] MEDS ORDERED: Fentanyl 100 MCG/2 ML VIAL ONE ×5 (13:24→16:53)
[2021-06-03] MEDS ORDERED: Bupivacaine HCl 0.5%/Epinephrine 1:200,000/PF 30 ml Vial ONE (13:40)
[2021-06-03] MEDS ORDERED: Fentanyl 100 MCG/2 ML VIAL IV PRN (13:44)
[2021-06-03] MEDS ORDERED: Promethazine HCl 25 MG/ML VIAL IM PRN (13:45)
[2021-06-03] MEDS ORDERED: HYDROcodone/Acetaminophen 5/325 mg Tablet PO PRN ×2 (13:45)
[2021-06-03] MEDS ORDERED: Ondansetron PF 4 MG/2 ML Vial IVP PRN (13:45)
[2021-06-03] MEDS ORDERED: Zolpidem Tartrate 5 MG TAB PO PRN (13:45)
[2021-06-03] MEDS ORDERED: PHENYLEPHRINE-NS 100 MCG/ML 10 ML SYRINGE ONE (13:52)
[2021-06-03] MEDS ORDERED: Dexamethasone 20 MG/5 ML VIAL ONE (13:52)
[2021-06-03] MEDS ORDERED: Ondansetron PF 4 MG/2 ML Vial ONE (13:52)
[2021-06-03] MEDS ORDERED: PROPOFOL 200 MG/20 ML VIAL ONE (13:52)
[2021-06-03] MEDS ORDERED: Rocuronium Bromide 10 MG/ML (10ML VIAL) ONE (13:52)
[2021-06-03] MEDS: traMADol HCl 50 MG TAB PO PRN (17:45)
[2021-06-03] MEDS: cefTRIAXone\\ROCEPHIN 1 GM in Sodium Chloride 0.9% 100 ML IVPB SCH (20:36)
[2021-06-03] MEDS: Gabapentin 400 MG CAP PO SCH (20:41)
[2021-06-03] MEDS: Escitalopram Oxalate 10 mg Tablet PO SCH (20:42)
[2021-06-03] MEDS: Ketorolac Tromethamine 30 MG/ML VIAL IVP PRN (20:42)
[2021-06-03] MEDS: Melatonin 3 MG TAB PO SCH (20:42)
[2021-06-04] MEDS: Levothyroxine 150 MCG TAB PO SCH (06:17)
[2021-06-04] MEDS: Vancomycin HCl 1.25 GM in Sodium Chloride 0.9% 250 ML 250 ML IVPB SCH (06:18)
[2021-06-04] MEDS: Ketorolac Tromethamine 30 MG/ML VIAL IVP PRN (06:33)
[2021-06-04] MEDS: Icosapent Ethyl 1 GM CAPSULE PO SCH ×2 (08:36→16:46)
[2021-06-04] MEDS: Cyanocobalamin (Vitamin B-12) 1,000 MCG TAB PO SCH (08:36)
[2021-06-04] MEDS: Oxybutynin 5 MG TAB PO SCH (08:37)
[2021-06-04] MEDS: Cholecalciferol 1,000 UNITS (25 MCG) TAB PO SCH (08:37)
[2021-06-04] MEDS: Multivit, Therapeutic 1 TAB PO SCH (08:37)
[2021-06-04] MEDS: Vit A,C & E/Lutein/Minerals Tablet PO SCH ×2 (08:38→20:20)
[2021-06-04] MEDS: Famotidine 20 MG TAB PO SCH ×2 (08:38→20:21)
[2021-06-04] MEDS ORDERED: Electrolyte Replacement Protocol 1 EACH FS SCH (08:45)
[2021-06-04 09:41] LABS: #Lymphocytes 0.6 thou/uL (1.20-3.40); #Monocytes 0.5 thou/uL (0.11-0.59); #Neutrophils 6.3 thou/uL (1.40-6.50); %Basophils 0.6 % (0.0-1.0); %Eosinophils 0.2 % (0.0-10.0); %Lymphocytes 8.5 % (21.0-51.0); %Monocytes 6.9 % (0.0-10.0); %Neutrophils 83.8 % (42.0-75.0); Hemoglobin 11.1 g/dL (12.0-16.0); Mean Corpuscular HGB CONC 32.2 g/dL (32.0-36.0); Mean Corpuscular Hemoglobin 30.7 pg (27.0-31.0); Mean Corpuscular Volume 95.3 fL (78.0-98.0); Mean Platelet Volume 6.9 fL (7.4-10.4); Platelet Count 240 thou/uL (130-400); RBC Distribution Width 14.2 % (11.5-14.5); Red Blood Cell (RBC) Count 3.61 mill/uL (4.20-5.40); White Blood Cell (WBC) Count 7.5 thou/uL (4.8-10.8)
[2021-06-04] MEDS ORDERED: Potassium Chloride 20 MEQ TAB PO SCH (09:45)
[2021-06-04] MEDS ORDERED: Polyethylene Glycol 3350 17 GM Packet PO PRN (09:53)
[2021-06-04 09:55] LABS: Anion Gap 13 mmol/L (10-20); BUN (Urea Nitrogen) 16 mg/dL (9.8-20.1); Calc. Creatinine Clearance 62 mL/min (70-130); Calcium 8.8 mg/dL (7.8-10.44); Carbon Dioxide 25 mmol/L (23-31); Chloride 105 mmol/L (98-107); Glucose 129 mg/dL (83-110); Magnesium 1.6 mg/dL (1.6-2.6); Potassium 3.8 mmol/L (3.5-5.1); Sodium 139 mmol/L (136-145)
[2021-06-04] MEDS ORDERED: hydrALAZINE 20 MG/ML VIAL SLOW IVP PRN (09:55)
[2021-06-04] MEDS ORDERED: Magnesium 2 GM/50 ML 2 GM in Premix Bag 1 BAG IVPB SCH (10:15)
[2021-06-04] MEDS: traMADol HCl 50 MG TAB PO PRN (14:29)
[2021-06-04] MEDS: Ropivacaine HCl/PF 250 ML in Premix Bag 1 BAG NERVE BLCK SCH (16:30)
[2021-06-04] MEDS: Melatonin 3 MG TAB PO SCH (20:20)
[2021-06-04] MEDS: CeleCOXIB 100 MG CAP PO SCH (20:21)
[2021-06-04] MEDS: Escitalopram Oxalate 10 mg Tablet PO SCH (20:22)
[2021-06-04] MEDS: cefTRIAXone\\ROCEPHIN 1 GM in Sodium Chloride 0.9% 100 ML IVPB SCH (20:22)
[2021-06-04] MEDS: Senokot S 8.6-50 MG TAB PO SCH ×2 (20:22→20:24)
[2021-06-04] MEDS: Gabapentin 400 MG CAP PO SCH (21:06)
[2021-06-05 05:30] LABS: #Basophils 0.1 thou/uL (0.0-0.2); #Eosinphils 0.3 thou/uL (0.0-0.7); #Lymphocytes 1.3 thou/uL (1.20-3.40); #Monocytes 0.8 thou/uL (0.11-0.59); #Neutrophils 3.9 thou/uL (1.40-6.50); %Basophils 1.1 % (0.0-1.0); %Eosinophils 5.4 % (0.0-10.0); %Lymphocytes 19.8 % (21.0-51.0); %Monocytes 11.8 % (0.0-10.0); Hemoglobin 10.7 g/dL (12.0-16.0); Mean Corpuscular HGB CONC 32.3 g/dL (32.0-36.0); Mean Corpuscular Hemoglobin 30.7 pg (27.0-31.0); Mean Corpuscular Volume 95.1 fL (78.0-98.0); Mean Platelet Volume 6.8 fL (7.4-10.4); Platelet Count 222 thou/uL (130-400); RBC Distribution Width 14.1 % (11.5-14.5); Red Blood Cell (RBC) Count 3.48 mill/uL (4.20-5.40); White Blood Cell (WBC) Count 6.4 thou/uL (4.8-10.8)
[2021-06-05 05:56] LABS: Vancomycin, Trough 15.5 ug/mL
[2021-06-05 05:57] LABS: Anion Gap 12 mmol/L (10-20); BUN (Urea Nitrogen) 16 mg/dL (9.8-20.1); Calc. Creatinine Clearance 62 mL/min (70-130); Calcium 8.8 mg/dL (7.8-10.44); Carbon Dioxide 25 mmol/L (23-31); Chloride 108 mmol/L (98-107); Glucose 82 mg/dL (83-110); Magnesium 2.2 mg/dL (1.6-2.6); Potassium 3.9 mmol/L (3.5-5.1); Sodium 141 mmol/L (136-145)
[2021-06-05] MEDS: Vancomycin HCl 1.25 GM in Sodium Chloride 0.9% 250 ML 250 ML IVPB SCH (06:23)
[2021-06-05] MEDS: Levothyroxine 150 MCG TAB PO SCH (06:23)
[2021-06-05] MEDS: traMADol HCl 50 MG TAB PO PRN ×3 (06:51→20:55)
[2021-06-05] MEDS: Cyanocobalamin (Vitamin B-12) 1,000 MCG TAB PO SCH (08:31)
[2021-06-05] MEDS: Cholecalciferol 1,000 UNITS (25 MCG) TAB PO SCH (08:31)
[2021-06-05] MEDS: Vit A,C & E/Lutein/Minerals Tablet PO SCH ×2 (08:31→20:09)
[2021-06-05] MEDS: Senokot S 8.6-50 MG TAB PO SCH ×2 (08:31→20:10)
[2021-06-05] MEDS: CeleCOXIB 100 MG CAP PO SCH ×2 (08:31→20:07)
[2021-06-05] MEDS: Oxybutynin 5 MG TAB PO SCH (08:33)
[2021-06-05] MEDS: Multivit, Therapeutic 1 TAB PO SCH (08:33)
[2021-06-05] MEDS: Famotidine 20 MG TAB PO SCH ×2 (08:33→20:08)
[2021-06-05] MEDS: Icosapent Ethyl 1 GM CAPSULE PO SCH ×2 (08:34→17:38)
[2021-06-05] MEDS: Ropivacaine HCl/PF 250 ML in Premix Bag 1 BAG NERVE BLCK SCH (14:58)
[2021-06-05] MEDS: cefTRIAXone\\ROCEPHIN 1 GM in Sodium Chloride 0.9% 100 ML IVPB SCH (20:07)
[2021-06-05] MEDS: Gabapentin 400 MG CAP PO SCH (20:08)
[2021-06-05] MEDS: Escitalopram Oxalate 10 mg Tablet PO SCH (20:08)
[2021-06-05] MEDS: Melatonin 3 MG TAB PO SCH (20:09)
[2021-06-06] MEDS: Levothyroxine 150 MCG TAB PO SCH (06:12)
[2021-06-06] MEDS: Vancomycin HCl 1.25 GM in Sodium Chloride 0.9% 250 ML 250 ML IVPB SCH (06:12)
[2021-06-06] MEDS: Cholecalciferol 1,000 UNITS (25 MCG) TAB PO SCH (08:57)
[2021-06-06] MEDS: Cyanocobalamin (Vitamin B-12) 1,000 MCG TAB PO SCH (08:57)
[2021-06-06] MEDS: Multivit, Therapeutic 1 TAB PO SCH (08:58)
[2021-06-06] MEDS: CeleCOXIB 100 MG CAP PO SCH ×2 (08:58→19:58)
[2021-06-06] MEDS: Famotidine 20 MG TAB PO SCH ×2 (08:58→19:59)
[2021-06-06] MEDS: Oxybutynin 5 MG TAB PO SCH (09:00)
[2021-06-06] MEDS: Senokot S 8.6-50 MG TAB PO SCH ×2 (09:00→20:00)
[2021-06-06] MEDS: Icosapent Ethyl 1 GM CAPSULE PO SCH ×2 (09:00→17:03)
[2021-06-06] MEDS: Vit A,C & E/Lutein/Minerals Tablet PO SCH ×2 (09:00→20:00)
[2021-06-06] MEDS ORDERED: Iopamidol 300 61% 50 ML VIAL FS ONE (10:55)
[2021-06-06] MEDS: traMADol HCl 50 MG TAB PO PRN ×2 (13:49→21:20)
[2021-06-06] MEDS: cefTRIAXone\\ROCEPHIN 1 GM in Sodium Chloride 0.9% 100 ML IVPB SCH (19:57)
[2021-06-06] MEDS: Gabapentin 400 MG CAP PO SCH (19:59)
[2021-06-06] MEDS: Escitalopram Oxalate 10 mg Tablet PO SCH (19:59)
[2021-06-06] MEDS: Melatonin 3 MG TAB PO SCH (20:00)
[2021-06-07 05:08] LABS: Vancomycin, Trough 15.4 ug/mL
[2021-06-07] MEDS: Levothyroxine 150 MCG TAB PO SCH (06:25)
[2021-06-07] MEDS: Vancomycin HCl 1.25 GM in Sodium Chloride 0.9% 250 ML 250 ML IVPB SCH (06:25)
[2021-06-07] MEDS: Oxybutynin 5 MG TAB PO SCH (09:43)
[2021-06-07] MEDS: CeleCOXIB 100 MG CAP PO SCH ×2 (09:43→20:40)
[2021-06-07] MEDS: Cholecalciferol 1,000 UNITS (25 MCG) TAB PO SCH (09:43)
[2021-06-07] MEDS: Famotidine 20 MG TAB PO SCH ×2 (09:44→20:41)
[2021-06-07] MEDS: Multivit, Therapeutic 1 TAB PO SCH (09:44)
[2021-06-07] MEDS: Vit A,C & E/Lutein/Minerals Tablet PO SCH ×2 (09:44→20:42)
[2021-06-07] MEDS: Senokot S 8.6-50 MG TAB PO SCH ×2 (09:45→21:03)
[2021-06-07] MEDS: Icosapent Ethyl 1 GM CAPSULE PO SCH ×2 (09:45→18:17)
[2021-06-07] MEDS: Cyanocobalamin (Vitamin B-12) 1,000 MCG TAB PO SCH (09:49)
[2021-06-07] MEDS: traMADol HCl 50 MG TAB PO PRN ×2 (13:36→20:39)
[2021-06-07] MEDS ORDERED: Apixaban 5 MG TAB PO SCH ×2 (18:15→21:00)
[2021-06-07] MEDS: cefTRIAXone\\ROCEPHIN 1 GM in Sodium Chloride 0.9% 100 ML IVPB SCH (20:38)
[2021-06-07] MEDS: Escitalopram Oxalate 10 mg Tablet PO SCH (20:40)
[2021-06-07] MEDS: Melatonin 3 MG TAB PO SCH (20:41)
[2021-06-07] MEDS: Gabapentin 400 MG CAP PO SCH (20:41)
[2021-06-08] MEDS: Levothyroxine 150 MCG TAB PO SCH (06:25)
[2021-06-08] MEDS: traMADol HCl 50 MG TAB PO PRN ×2 (06:25→16:25)
[2021-06-08] MEDS: Vancomycin HCl 1.25 GM in Sodium Chloride 0.9% 250 ML 250 ML IVPB SCH (06:25)
[2021-06-08] MEDS ORDERED: Apixaban 5 MG TAB PO SCH (09:00)
[2021-06-08] MEDS: Senokot S 8.6-50 MG TAB PO SCH (09:44)
[2021-06-08] MEDS: Multivit, Therapeutic 1 TAB PO SCH (09:44)
[2021-06-08] MEDS: Cholecalciferol 1,000 UNITS (25 MCG) TAB PO SCH (09:45)
[2021-06-08] MEDS: CeleCOXIB 100 MG CAP PO SCH (09:45)
[2021-06-08] MEDS: Famotidine 20 MG TAB PO SCH (09:46)
[2021-06-08] MEDS: Vit A,C & E/Lutein/Minerals Tablet PO SCH (09:46)
[2021-06-08] MEDS: Oxybutynin 5 MG TAB PO SCH (09:46)
[2021-06-08] MEDS: Icosapent Ethyl 1 GM CAPSULE PO SCH ×2 (09:47→16:28)
[2021-06-08] MEDS: Cyanocobalamin (Vitamin B-12) 1,000 MCG TAB PO SCH (09:47)
[2021-06-08 15:56] VITALS: BP 116/74; TEMP 97.5
== END 2021-06-08 16:53 | DRG 486 ==
LOC: ERS 15:25 → SURG A 17:50
PROVIDERS: ADMIT Orthopaedic Surgery; ATTEND Internal Medicine
PROC: 0SPD09Z Removal of Liner from Left Knee Joint, Open Approach (ICD-10-PCS; principal; 2021-06-03)
PROC: 0SUW09Z Supplement Left Knee Joint, Tibial Surface with Liner, Open Approach (ICD-10-PCS; 2021-06-03)
PROC: 0MDP0ZZ Extraction of Left Knee Bursa and Ligament, Open Approach (ICD-10-PCS; 2021-06-03)
PROC: 02HV33Z Insertion of Infusion Device into Superior Vena Cava, Percutaneous Approach (ICD-10-PCS; 2021-06-06)
PROC: B548ZZA Ultrasonography of Superior Vena Cava, Guidance (ICD-10-PCS; 2021-06-06)
DX: T84.54XA Infection and inflammatory reaction due to internal left knee prosthesis, initial encounter (principal); T81.30XA Disruption of wound, unspecified, initial encounter; I48.20 Chronic atrial fibrillation, unspecified; Y83.8 Other surgical procedures as the cause of abnormal reaction of the patient, or of later complication, without mention of misadventure at the time of the procedure; E78.5 Hyperlipidemia, unspecified; E78.00 Pure hypercholesterolemia, unspecified; Z96.651 Presence of right artificial knee joint; I12.9 Hypertensive chronic kidney disease with stage 1 through stage 4 chronic kidney disease, or unspecified chronic kidney disease; N18.30 Chronic kidney disease, stage 3 unspecified; Z20.822 Contact with and (suspected) exposure to COVID-19; M06.9 Rheumatoid arthritis, unspecified; F41.9 Anxiety disorder, unspecified; F32.A Depression, unspecified; E03.9 Hypothyroidism, unspecified; E66.9 Obesity, unspecified; Z90.49 Acquired absence of other specified parts of digestive tract; Z90.710 Acquired absence of both cervix and uterus; Z88.8 Allergy status to other drugs, medicaments and biological substances; Z79.01 Long term (current) use of anticoagulants; Z79.899 Other long term (current) drug therapy; Z95.0 Presence of cardiac pacemaker; Z68.34 Body mass index [BMI] 34.0-34.9, adult; Z79.890 Hormone replacement therapy; E87.6 Hypokalemia; E83.42 Hypomagnesemia
CPT/HCPCS: 36415; 36569; 71045; 72131; 72148; 80048; 80053; 80202; 83735; 85025; 85610; 85652; 85730; 86140; 87070; 87205; 93005; 96365; 96367; C1751; J0696; J1100; J1885; J2405; J2704; J2795; J3010; J3370; J3475; J3490; J7050; Q9967; U0002

== ENCOUNTER 2021-06-13 16:42 | Emergency (ER) | payer MEDICARE | END 2021-06-13 19:00 | LOC: ERS 16:42 | DX: T82.594A Other mechanical complication of infusion catheter, initial encounter (principal); E78.5 Hyperlipidemia, unspecified; E78.00 Pure hypercholesterolemia, unspecified; I10 Essential (primary) hypertension; I48.91 Unspecified atrial fibrillation; M06.9 Rheumatoid arthritis, unspecified | CPT/HCPCS: 99283 ==

== ENCOUNTER 2023-10-22 11:47 | Inpatient (IN) | payer MEDICARE ==
[2023-10-22 12:44] LABS: #Basophils 0.07 10x3/uL (0.0-0.2); %Basophils 1.1 % (0.0-1.0); %Eosinophils 3.1 % (0.0-10.0); %Lymphocytes 19.9 % (21.0-51.0); %Monocytes 14.6 % (0.0-10.0); Hematocrit 41.4 % (36.0-47.0); Hemoglobin 13.8 g/dL (12.0-16.0); Mean Corpuscular HGB CONC 33.3 g/dL (32.0-36.0); Mean Corpuscular Hemoglobin 32.5 pg (27.0-31.0); Mean Corpuscular Volume 97.4 fL (78.0-98.0); Mean Platelet Volume 8.8 fL (7.4-10.4); Platelet Count 218 10x3/uL (130-400); RBC Distribution Width 14.4 % (11.5-14.5); Red Blood Cell (RBC) Count 4.25 mill/uL (4.20-5.40)
[2023-10-22 12:53] LABS: INR-International Normal Ratio 1.1; PTT 28.8 sec (22.9-36.1); Prothrombin Time 14.6 sec (12.0-14.7)
[2023-10-22 12:58] LABS: Troponin I 0.034 ng/mL (< 0.028)
[2023-10-22 13:02] LABS: ALT (SGPT) 28 U/L (8-55); AST (SGOT) 17 U/L (5-34); Albumin 3.7 g/dL (3.4-4.8); Alkaline Phosphatase 80 U/L (40-110); Anion Gap 16 mmol/L (10-20); BUN (Urea Nitrogen) 21 mg/dL (9.8-20.1); Bilirubin, Total 0.4 mg/dL (0.2-1.2); CK (CPK) 135 U/L (29-168); Calc. Creatinine Clearance 0 mL/min (70-130); Carbon Dioxide 24 mmol/L (23-31); Chloride 105 mmol/L (98-107); Estimated GFR 41; Globulin 3.4 g/dL (2.4-3.5); Glucose 97 mg/dL (83-110); Potassium 4.4 mmol/L (3.5-5.1); Protein, Total 7.1 g/dL (5.8-8.1); Sodium 141 mmol/L (136-145)
[2023-10-22] MEDS ORDERED: traMADol HCl 50 MG TAB ONE (16:29)
[2023-10-22 17:33] LABS: Troponin I 0.015 ng/mL (< 0.028)
[2023-10-22] MEDS ORDERED: Furosemide 40 MG (4 mL) VIAL ONE (18:23)
[2023-10-22 20:18] LABS: Troponin I 0.022 ng/mL (< 0.028)
[2023-10-22 21:48] VITALS: BMI 36.3
[2023-10-22] MEDS ORDERED: Non-Formulary Item 1 EACH (Evolocumab [Repatha Sureclick] 140 MG/ML Pen.Injctr) SQ SCH (23:15)
[2023-10-22] MEDS: traMADol HCl 50 MG TAB PO PRN (23:48)
[2023-10-23] MEDS: rOPINIRole HCl 0.5 MG TAB PO SCH ×2 (01:21→20:50)
[2023-10-23] MEDS: Gabapentin 400 MG CAP PO SCH ×3 (01:22→20:50)
[2023-10-23 05:26] LABS: #Basophils 0.06 10x3/uL (0.0-0.2); %Basophils 0.9 % (0.0-1.0); %Eosinophils 1.7 % (0.0-10.0); %Monocytes 16.4 % (0.0-10.0); %Neutrophils 63.5 % (42.0-75.0); Hematocrit 38.2 % (36.0-47.0); Hemoglobin 12.2 g/dL (12.0-16.0); Mean Corpuscular HGB CONC 31.9 g/dL (32.0-36.0); Mean Corpuscular Volume 97.2 fL (78.0-98.0); Mean Platelet Volume 8.5 fL (7.4-10.4); Platelet Count 192 10x3/uL (130-400); RBC Distribution Width 14.1 % (11.5-14.5); Red Blood Cell (RBC) Count 3.93 mill/uL (4.20-5.40)
[2023-10-23 05:29] LABS: ALT (SGPT) 23 U/L (8-55); AST (SGOT) 12 U/L (5-34); Albumin 3.3 g/dL (3.4-4.8); Alkaline Phosphatase 72 U/L (40-110); Anion Gap 13 mmol/L (10-20); BUN (Urea Nitrogen) 16 mg/dL (9.8-20.1); Bilirubin, Total 0.5 mg/dL (0.2-1.2); Calc. Creatinine Clearance 54 mL/min (70-130); Calcium 9.3 mg/dL (7.8-10.44); Carbon Dioxide 29 mmol/L (23-31); Chloride 104 mmol/L (98-107); Estimated GFR 44; Globulin 2.6 g/dL (2.4-3.5); Glucose 106 mg/dL (83-110); Potassium 3.5 mmol/L (3.5-5.1); Protein, Total 5.9 g/dL (5.8-8.1); Sodium 142 mmol/L (136-145)
[2023-10-23] MEDS: Furosemide 20 MG (2 mL) VIAL SLOW IVP SCH (06:54)
[2023-10-23] MEDS: Levothyroxine 150 MCG TAB PO SCH (06:54)
[2023-10-23] MEDS: Multivit, Therapeutic 1 TAB PO SCH (09:00)
[2023-10-23] MEDS ORDERED: Enoxaparin 40 MG (0.4 mL) SYRINGE SC SCH (09:00)
[2023-10-23] MEDS: dilTIAZem CD 180 MG CAP PO SCH (09:00)
[2023-10-23] MEDS: Cholecalciferol 1,000 UNITS (25 MCG) TAB PO SCH (09:00)
[2023-10-23] MEDS: Cyanocobalamin (Vitamin B-12) 1,000 MCG TAB PO SCH (09:01)
[2023-10-23] MEDS: Apixaban 5 MG TAB PO SCH (09:01)
[2023-10-23] MEDS: Escitalopram Oxalate 20 mg Tablet PO SCH (09:01)
[2023-10-23] MEDS: Vit A,C & E/Lutein/Minerals Tablet PO SCH (09:01)
[2023-10-23] MEDS: Calcitriol 0.25 MCG CAP PO SCH (09:02)
[2023-10-23] MEDS: Leflunomide 10 mg Tablet PO SCH (09:02)
[2023-10-23] MEDS: Icosapent Ethyl 1 GM CAPSULE PO SCH (09:02)
[2023-10-23] MEDS: Hydroxychloroquine Sulfate 200 MG TAB PO SCH (09:02)
[2023-10-23] MEDS: sulfaSALAzine 500 MG TAB PO SCH (09:02)
[2023-10-23] MEDS: Empagliflozin 10 MG TAB PO SCH (14:40)
[2023-10-23] MEDS: Spironolactone 25 MG TAB PO SCH (15:29)
[2023-10-24 06:34] LABS: Free T4 (Free Thyroxine) 0.88 ng/dL (0.70-1.48); Thyroid Stimulating Hormone 1.7416 uIU/mL (0.35-4.94)
[2023-10-24 07:12] LABS: Anion Gap 14 mmol/L (10-20); BUN (Urea Nitrogen) 20 mg/dL (9.8-20.1); Calc. Creatinine Clearance 52 mL/min (70-130); Calcium 9.1 mg/dL (7.8-10.44); Carbon Dioxide 27 mmol/L (23-31); Chloride 102 mmol/L (98-107); Estimated GFR 44; Glucose 108 mg/dL (83-110); Potassium 3.6 mmol/L (3.5-5.1); Sodium 139 mmol/L (136-145)
[2023-10-24] MEDS: dilTIAZem CD 240 MG CAP PO SCH (09:39)
[2023-10-24] MEDS: Empagliflozin 10 MG TAB PO SCH (09:40)
[2023-10-24] MEDS: Spironolactone 25 MG TAB PO SCH (09:40)
[2023-10-25 05:04] LABS: #Basophils 0.03 10x3/uL (0.0-0.2); %Basophils 0.5 % (0.0-1.0); %Eosinophils 2.6 % (0.0-10.0); %Lymphocytes 27.2 % (21.0-51.0); %Monocytes 15.4 % (0.0-10.0); %Neutrophils 54.1 % (42.0-75.0); Hematocrit 40.3 % (36.0-47.0); Hemoglobin 13.2 g/dL (12.0-16.0); Mean Corpuscular HGB CONC 32.8 g/dL (32.0-36.0); Mean Corpuscular Hemoglobin 31.4 pg (27.0-31.0); Mean Corpuscular Volume 95.7 fL (78.0-98.0); Mean Platelet Volume 8.7 fL (7.4-10.4); Platelet Count 205 10x3/uL (130-400); RBC Distribution Width 14.1 % (11.5-14.5); Red Blood Cell (RBC) Count 4.21 mill/uL (4.20-5.40)
[2023-10-25 05:27] LABS: ALT (SGPT) 25 U/L (8-55); AST (SGOT) 16 U/L (5-34); Albumin 3.3 g/dL (3.4-4.8); Alkaline Phosphatase 71 U/L (40-110); Anion Gap 14 mmol/L (10-20); BUN (Urea Nitrogen) 23 mg/dL (9.8-20.1); Bilirubin, Total 0.5 mg/dL (0.2-1.2); Calc. Creatinine Clearance 40 mL/min (70-130); Calcium 9.4 mg/dL (7.8-10.44); Carbon Dioxide 30 mmol/L (23-31); Cardiac Risk 3.4 (Less than 4.5); Chloride 99 mmol/L (98-107); Cholesterol 149 mg/dl (< 200 Desired); Estimated GFR 32; Globulin 2.9 g/dL (2.4-3.5); Glucose 106 mg/dL (83-110); HDL Cholesterol 44 mg/dL (>60 Neg Risk); LDL Cholesterol, Calculated 72 mg/dL; Potassium 3.2 mmol/L (3.5-5.1); Protein, Total 6.2 g/dL (5.8-8.1); Sodium 140 mmol/L (136-145); Triglycerides 167 mg/dL (Less than 150)
[2023-10-25] MEDS: Potassium Chloride 20 MEQ TAB PO SCH (18:19)
[2023-10-26 04:37] LABS: #Basophils 0.04 10x3/uL (0.0-0.2); %Basophils 0.6 % (0.0-1.0); %Eosinophils 2.6 % (0.0-10.0); %Lymphocytes 26.8 % (21.0-51.0); %Monocytes 14.9 % (0.0-10.0); %Neutrophils 54.6 % (42.0-75.0); Hematocrit 41.2 % (36.0-47.0); Hemoglobin 13.8 g/dL (12.0-16.0); Mean Corpuscular HGB CONC 33.5 g/dL (32.0-36.0); Mean Corpuscular Hemoglobin 31.5 pg (27.0-31.0); Mean Corpuscular Volume 94.1 fL (78.0-98.0); Mean Platelet Volume 8.3 fL (7.4-10.4); Platelet Count 209 10x3/uL (130-400); RBC Distribution Width 14.1 % (11.5-14.5); Red Blood Cell (RBC) Count 4.38 mill/uL (4.20-5.40)
[2023-10-26 05:08] LABS: ALT (SGPT) 26 U/L (8-55); AST (SGOT) 19 U/L (5-34); Albumin 3.4 g/dL (3.4-4.8); Alkaline Phosphatase 68 U/L (40-110); Anion Gap 16 mmol/L (10-20); BUN (Urea Nitrogen) 23 mg/dL (9.8-20.1); Bilirubin, Total 0.4 mg/dL (0.2-1.2); Calc. Creatinine Clearance 44 mL/min (70-130); Calcium 9.7 mg/dL (7.8-10.44); Carbon Dioxide 26 mmol/L (23-31); Chloride 101 mmol/L (98-107); Estimated GFR 35; Globulin 2.9 g/dL (2.4-3.5); Glucose 101 mg/dL (83-110); Potassium 3.9 mmol/L (3.5-5.1); Protein, Total 6.3 g/dL (5.8-8.1); Sodium 139 mmol/L (136-145)
[2023-10-26 09:30] VITALS: BP 108/59; TEMP 98.3
== END 2023-10-26 12:56 | DRG 308 ==
LOC: ERS 11:47 → 2SW 19:21 → OBSVTOIN 10-23 11:41
PROVIDERS: ADMIT Hospitalist; ATTEND Family Medicine
DX: I48.11 Longstanding persistent atrial fibrillation (principal); I50.33 Acute on chronic diastolic (congestive) heart failure; I13.0 Hypertensive heart and chronic kidney disease with heart failure and stage 1 through stage 4 chronic kidney disease, or unspecified chronic kidney disease; C18.9 Malignant neoplasm of colon, unspecified; Z68.1 Body mass index [BMI] 19.9 or less, adult; I48.92 Unspecified atrial flutter; M06.9 Rheumatoid arthritis, unspecified; Z66 Do not resuscitate; E03.9 Hypothyroidism, unspecified; N18.30 Chronic kidney disease, stage 3 unspecified; E78.5 Hyperlipidemia, unspecified; G89.4 Chronic pain syndrome; G25.81 Restless legs syndrome; E66.9 Obesity, unspecified; E87.5 Hyperkalemia; Z92.21 Personal history of antineoplastic chemotherapy; Z88.8 Allergy status to other drugs, medicaments and biological substances; Z79.890 Hormone replacement therapy; Z95.0 Presence of cardiac pacemaker; I25.10 Atherosclerotic heart disease of native coronary artery without angina pectoris; R29.6 Repeated falls; G62.9 Polyneuropathy, unspecified; R26.9 Unspecified abnormalities of gait and mobility
CPT/HCPCS: 36415; 36416; 71046; 80048; 80053; 80061; 82550; 83735; 83880; 84439; 84443; 84484; 85025; 85610; 85730; 93005; 93306; 93798; 96374; 96376; G0378; J1940